=== PATIENT | female | born 1945 | race Caucasian/White ===

== ENCOUNTER 2016-09-22 20:21 | Inpatient (IN) | payer MEDICARE, OTHER ==
[~2016-09-22] VITALS: Ht 170.2 cm; Wt 85.3 kg
[~2016-09-22 20:21] MED LIST: ACETAMINOPHEN500 M1; ACIPHEX20 MG PO; BAYER CHEWABLE81 MG PO; BENICAR HCT 40-1 TA1 PO; BENICAR20 MG PO; CARAFATE1 G PO; CARDIZEM CD180 MG PO; CEFTIN250 MG PO; COUMADIN2.5 MG; COUMADIN2.5 MG PO; COUMADIN5 MG PO; FISH OIL 1,0001 CA1 PO; FOLIC ACID1 MG PO; FUROSEMIDE40 MG PO; GLUCOPHAGE500 MG PO; LANOXIN125 MCG PO; LASIX INJ40 MG/4 ML PO; LISINOPRIL5 MG PO; LOPRESSOR25 MG PO; LOPRESSOR50 MG PO; PERCOCET 5-3251 TAB PO; PROPAFENONE HC150 MG PO; PROPAFENONE PO; PROTONIX40 MG PO; RYTHMOL150 MG PO; Rythmol PO; TRICOR145 MG PO; TRILIPIX135 MG PO; VITAMIN B-121000 MC3 PO; VITAMIN B-6100 MG PO; VITAMIN D2000 UNIT PO; XANAX1 MG PO; ZOCOR40 MG PO
[2016-09-22 21:14] LABS: BASOPHILS 0.1 % (0.0-2.0); EOSINOPHILS 0.1 % (0-7); HEMATOCRIT 44.2 % (36.0-48.0); HEMOGLOBIN 13.8 g/dL (12-16); IMMATURE GRANULOCYTES 0.2 % (0-5); LYMPHOCYTES 18.5 % (15-50); MCH 25.1 pg (26.0-34.0); MCHC 31.2 g/dL (31.0-37.0); MCV 80.5 fL (80.0-100.0); MEAN PLATELET VOLUME 10.6 fL (7.4-10.4); MONOCYTES 7.3 % (2-11); NEUTROPHILS 73.8 % (40-80); PLATELET COUNT 358 10x3/uL (130-400); RBC 5.49 10x6/uL (4.00-5.40); RDW 22.1 % (11.5-14.5)
[2016-09-22 21:28] LABS: ALBUMIN 3.2 g/dL (3.4-5.0); ALKALINE PHOSPHATASE 45 U/L (46-116); ALT (SGPT) 20 U/L (10-68); BILIRUBIN - TOTAL 0.57 mg/dL (0.2-1.3); CALC OSMOLALITY 280 mosm/kg (275-300); CALCIUM 9.5 mg/dL (8.5-10.1); CARBON DIOXIDE 25.2 mmol/L (21.0-32.0); CHLORIDE - SERUM 100 mmol/L (98-107); CREATININE - SERUM 1.6 mg/dL (0.6-1.3); GLUCOSE 145 mg/dL (74-106); POTASSIUM - SERUM 3.7 mmol/L (3.5-5.1); SODIUM 137 mmol/L (136-145); UREA NITROGEN 24 mg/dL (7-18); eGFR NON AFRICAN AMERICAN 34 mL/min (90-120)
[2016-09-22 21:40] LABS: CHOL - HDL RATIO 4.5 ratio (2.3-4.1); CHOLESTEROL, TOTAL 195 mg/dL (0-200); CKMB 0.8 U/L (0.0-3.6); CREATINE KINASE 35 UL (21-215); HDL CHOLESTEROL 43 mg/dL (32-96); LDL CHOLESTEROL 112 mg/dL (0-100); LDL-HDL RATIO 2.6 ratio (1.5-3.5); MAGNESIUM - SERUM 1.9 mg/dL (1.8-2.4); TRIGLYCERIDE 203 mg/dL (30-200)
[2016-09-22 21:41] LABS: DIGOXIN 0.05 ng/mL (0.90-2.00); TROPONIN-I < 0.017 ng/mL (0.000-0.060)
--- NOTE | 2016-09-23 00:13 | NUR ---
RECEIVED TO 2123 FROM ER VIA WHEELCHAIR, AAOX3, SKIN WARM AND DRY, RESP UNLABORED, IV PATENT TO LEFT AC, FAMILY AT BEDSIDE, NO DISTRESS NOTED
[2016-09-23] MEDS ORDERED: COUMADIN1 MG PO (00:37)
[2016-09-23] MEDS ORDERED: ADVAIR 250/501 DISK INH (00:42)
[2016-09-23] MEDS ORDERED: SINGULAIR10 MG PO (00:43)
[2016-09-23] MEDS ORDERED: K-DUR20 MEQ PO (00:44)
[2016-09-23 00:52] VITALS: BP 158/90; BMI 29.5
[2016-09-23 06:33] VITALS: BP 131/63
--- NOTE | 2016-09-23 06:35 | NUR ---
RESTING QUIETLY IN BED, NO DISTRESS NOTED
--- NOTE | 2016-09-23 06:50 | NUR ---
RECEIVED REPOT FROM AXLE AND FRAME MECHANIC NURSE, AI KEITH. PT IN BED, DENIES ANY NEEDS AT THUIS TIME. CALL LIGHT IN REACH, NAD NOTED, WILL CONTINUE TO MONITOR.
[2016-09-23 07:52] VITALS: BP 123/74
--- NOTE | 2016-09-23 08:19 | NUR ---
CARDIZEM DRIP STARTED AT THIS TIME. PACEMAKER BEING CHECKED AT THIS TIME. PT UP TO SIDE OF BED, DENIES ANY NEEDS AT THIS TIME. CALL LIGHT IN REACH, FAMILY AT BEDSIDE, NAD NOTED, WILL CONTINUE TO MONITOR.
[2016-09-23 12:00] VITALS: BP 115/50
[2016-09-23 12:34] VITALS: Ht 170.2 cm; Wt 85.3 kg
--- NOTE | 2016-09-23 15:30 | NUR ---
PAGED DR. SALEH, WAITING ON HIM TO CALL BACK. 153- RECEIVED CALL BACK ROM DR. SALEH, INFOMRED HIM THAT PT IS ASKING FOR SOMETHING FOR PAIN AND THAT TYLENOL IS NOT DOING ANYTHING FOR HER, AND ALSO THAT PT WANTS A NASAL SPRAY THAT WILL DRY HER DRAINING UP. DR. SALEH STATED THAT SHE COULD HAVE NORCO 10/325MG Q4PRN FOR HEADACHE AND THAT ANY NASAL SPRAY WOULD BE FINE.
[2016-09-23 15:44] VITALS: BP 115/56
--- NOTE | 2016-09-23 15:50 | NUR ---
WENT TO ADMINISTERED NORCO FOR HEADACHE, PT STATED THAT SHE WANTED TO WAIT UNTIL TONIGHT TO GET THE PAIN PILL, BECAUSE IT WILL PUT HER TO SLEEP. PT DENIES ANY NEEDS AT THIS TIME. CALL LIGHT IN REACH, NAD NOTED, WILL CONTINUE TO MONITOR.
--- NOTE | 2016-09-23 19:03 | NUR ---
SITTING UP IN BED, AAOX3, SKIN WARM AND DRY, RESP UNLABORED, IV PATENT TO LEFT AC, SEVERAL FAMILY MEMBERS AT BEDSIDE, NO DISTRESS NOTED
[2016-09-23 20:33] VITALS: BP 168/76
[2016-09-24 00:32] VITALS: BP 136/81
[2016-09-24 04:42] VITALS: BP 122/81; BP 151/103
--- NOTE | 2016-09-24 05:39 | NUR ---
RESTING QUIETLY IN BED, NO DISTRESS NOTED
--- NOTE | 2016-09-24 06:20 | NUR ---
PT LAYING IN BED EYES OPEN NO DISTRESS OBSERVED CALL LIGHT IN REACH SRX2 WILL MONITOR
--- NOTE | 2016-09-24 06:21 | NUR ---
PT LAYING IN BED NO DISTRESS OBSERVED SECURITY INCIDENT RESPONSE SPECIALIST AT BEDSIDE OBTANING VITAL SIGNS BED LOW AND LOCKED CALL LIGHT IN REACH SRX2 WILL MONITOR
--- NOTE | 2016-09-24 06:50 | NUR ---
RECEIVED REPORT FROM CONTRACTS DIRECTOR NURSE, PT UP TO SIDE OF BED, DENIES ANY NEEDS AT THIS TIME. ASSESSMENT DONE AT THIS TIME. CALL LIGHT IN REACH, NAD NOTED, WILL CONTINUE TO MONITOR.
[2016-09-24 08:00] VITALS: BP 134/70
--- NOTE | 2016-09-24 08:30 | NUR ---
ADMINISTERED MORNING MEDICATIONS, PT UP TO CHAIR, EATING BREAKFAST AT THIS TIME. STATES THAT DR. ANDRADE TOLD HER THAT HE WOULD D/C THE CARDIZEM DRIP AND ORDER AN ECHO. INFORMED PT THAT I DID NOT SEE ANY OTHER FOR THOSE TWO THING. PT DENIES ANY NEEDS AT THIS TIME.Fuad MELO IN REACH, NAD NOTED, WILL CONTINUE TO MONITOR.
--- NOTE | 2016-09-24 10:37 | NUR ---
LEFT AC IV, INFILTRATED, D/C IV, TIP INTACT. WILL START A NEW IV, BUT PT WANTS TO GET IN THE SHOWER FIRST. PT WILL NOTIFY NURSE WHEN SHE IS DONE WITH SHOWER.
--- NOTE | 2016-09-24 11:25 | NUR ---
PAGED DR. ANDRADE WAITING ON HIM TO CALL BACK. 1130- RECEIVED CALL BACK FROM DR. ANDRADE, INFOMRED HIM THAT PT IS SAYING THAT HE TOLD TOLD HER THAT HE WAS GOING TO TAKE HER OFF THE CARDIZEM DRIP AND START HER ON NEW MEDICATIONS AND ALSO ORDER AN ECHO ON HER. PT WANTS TO KNOW IF SHE CAN COME OFF THE CARDIZEM DRIP. DR. ANDRADE STATED THAT HE TOLD PT THAT HE WOULD ORDER AN ECHO AND COME BY AFTER LUNCH AND SEE HOW SHE IS DOING TO SEE IF HE WANTS TO D/C CARDIZEM DRIP. WILL LET PT KNOW ABOUT INFO GIVEN BY DR. ANDRADE.
--- NOTE | 2016-09-24 11:35 | NUR ---
IV access-#22 introcan in left hand x 1 attempt for saline flush. Gloria Alejo RN
[2016-09-24 12:00] VITALS: BP 115/62
[2016-09-24 16:00] VITALS: BP 129/62
--- NOTE | 2016-09-24 17:16 | NUR ---
PT UP TO SIDE OF BED, EATING DINNER. DENIES ANY NEEDS AT THIS TIME. CALL LIGHT IN REACH, NAD NOTED, WILL CONTINUE TO MONITOR.
--- NOTE | 2016-09-24 19:03 | NUR ---
SITTING UP IN BED, AAOX3, SKIN WARM AND DRY, RESP UNLABORED, IV PATENT TO LEFT HAND, NO DISTRESS NOTED
[2016-09-24 20:00] VITALS: BP 129/70
[2016-09-25] VITALS: BP 105/49
--- NOTE | 2016-09-25 03:56 | NUR ---
COMMERCIAL LOAN UNDERWRITER AT BEDSIDE TO OBTAIN VITALS, CALL LIGHT IN REACH. WILL CONTINUE WITH PLAN OF CARE.
[2016-09-25 04:00] VITALS: BP 119/65
--- NOTE | 2016-09-25 06:22 | NUR ---
RESTING QUIETLY IN BED, NO DISTRESS NOTED
--- NOTE | 2016-09-25 07:48 | NUR ---
PT SITTING UP IN BED WITH SON AT BEDSIDE. DENIES NEEDS WILL CONTINUE TO MONITOR.
[2016-09-25 08:14] VITALS: BP 132/81
[2016-09-25 11:24] LABS: INR 1.12 (0.85-1.17); PROTIME 14.3 SECONDS (11.6-15.0)
[2016-09-25 12:40] VITALS: BP 151/70
--- NOTE | 2016-09-25 14:06 | NUR ---
PT HAS BEEN SITTING UP TO THE CHAIR MOST OF THE DAY DENIES NEEDS AT THIS TIME WILL CONTINUE TO MONITOR.
--- NOTE | 2016-09-25 14:38 | NUR ---
PT PT AND INR ARE WITHIN NORMAL LIMITS OK TO GIVE COUMADIN.
[2016-09-25 16:57] VITALS: BP 129/86
--- NOTE | 2016-09-25 17:00 | NUR ---
DC CARDIZEM DRIP 2 HOURS AFTER PO DOSE OF CARDIZEM PER DR LUPE ROYAL.
--- NOTE | 2016-09-25 17:29 | NUR ---
PT SITTING UP IN BED EATING DINNER DENIES NEEDS AT THIS TIME.
[2016-09-25 20:00] VITALS: BP 157/84
--- NOTE | 2016-09-25 20:00 | NUR ---
PT RESTING IN BED. ALERT/ORIENTED. 102 UCAF. NO SOB, DENIES NEED FOR O2. PT TEACHING ON CARDIZEM/ USE OF IV CARDIZEM TO BUILD UP IN SYSTEM, THEN PO TO CONTINUE DOSE. SEE ASSESSMENT.
[2016-09-26 02:28] VITALS: BP 128/66
--- NOTE | 2016-09-26 06:00 | NUR ---
PT SAW HER PCP IN HALLWAY AND REQUESTED HE COME SEE HER. SHE SPOKE WITH HIM ABOUT HER COUGH/THICK GREEN PHLEGM AND CONGESTION. ORDERS PER PCP, DR ANDRADE TO BE UPDATED.
[2016-09-26 08:00] VITALS: BP 147/88
--- NOTE | 2016-09-26 08:07 | NUR ---
PT SITTING UP TO CHAIR DENIES NEEDS AT THIS TIME WILL CONTINUE TO MONITOR.
[2016-09-26 08:34] LABS: ALBUMIN 3.3 g/dL (3.4-5.0); ANION GAP 14.3 mmol/L (8-16); BILIRUBIN - TOTAL 0.61 mg/dL (0.2-1.3); CALCIUM 9.5 mg/dL (8.5-10.1); CARBON DIOXIDE 26.7 mmol/L (21.0-32.0); CREATININE - SERUM 1.1 mg/dL (0.6-1.3); PROTEIN - SERUM 6.6 g/dL (6.4-8.2)
[2016-09-26 08:41] LABS: APTT 26.3 SECONDS (22.8-39.4); INR 1.14 (0.85-1.17); PROTIME 14.5 SECONDS (11.6-15.0)
[2016-09-26 08:52] LABS: BASOPHILS 0.1 % (0.0-2.0); EOSINOPHILS 0.5 % (0-7); HEMATOCRIT 41.5 % (36.0-48.0); IMMATURE GRANULOCYTES 0.1 % (0-5); LYMPHOCYTES 19.5 % (15-50); MCH 25.6 pg (26.0-34.0); MCHC 31.3 g/dL (31.0-37.0); MCV 81.9 fL (80.0-100.0); MEAN PLATELET VOLUME 10.2 fL (7.4-10.4); MONOCYTES 10.3 % (2-11); NEUTROPHILS 69.5 % (40-80); RBC 5.07 10x6/uL (4.00-5.40); RDW 22.9 % (11.5-14.5); WBC 7.6 10x3/uL (4.8-10.8)
[2016-09-26 09:03] LABS: PLATELET COUNT 275 10x3/uL (130-400)
--- NOTE | 2016-09-26 10:19 | NUR ---
Nutrition Follow Up: Chart reviewed. Diet: ADA AHA PO Intake: 83% (9 meal avg) I=O No new wt to assess No BM since admit Meds: Coumadin, Lasix, Metformin Labs noted Pt with good po intake at this time. Rec continue current diet. RD following.
[2016-09-26 12:00] VITALS: BP 109/69
[2016-09-26 16:00] VITALS: BP 108/54
--- NOTE | 2016-09-26 18:45 | NUR ---
PT SITTING UP IN CHAIR DENIES NEEDS
[2016-09-26 20:00] VITALS: BP 134/72
--- NOTE | 2016-09-26 20:00 | NUR ---
PT ALERT/ORIENTED AND SITTING IN BEDSIDE CHAIR. REPORTS THAT SHE HAS HAD LARGE RESULTS FROM THE PRUNE JUICE/[place] PE[place] DRINK THAT SHE TOOK THIS AM. PT WITH PRODUCTIVE COUGH/CONGESTION. UCAF PER TELEMETRY, RATE 110-120'S. CPOC.
--- NOTE | 2016-09-26 23:00 | NUR ---
HS MEDS GIVEN. PT NOW READING NOVEL. DENIES PAIN OR DISCOMFORT. REQUESTED COUGH MEDICINE GIVEN. CPOC.
[2016-09-27 04:00] VITALS: BP 99/57
[2016-09-27 06:04] LABS: INR 1.15 (0.85-1.17); PROTIME 14.6 SECONDS (11.6-15.0)
--- NOTE | 2016-09-27 07:31 | NUR ---
PT SITTING UP IN CHAIR REQUESTING PAIN MEDS WILL GET.
[2016-09-27 08:03] VITALS: BP 121/52
[2016-09-27 12:11] VITALS: BP 116/78
[2016-09-27] MEDS ORDERED: MULTAQ400 MG PO ×2 (12:18→12:20)
[2016-09-27] MEDS ORDERED: CARDIZEM 90 MG90 MG PO (12:20)
--- NOTE | 2016-09-27 13:01 | NUR ---
WENT OVER DC PAPERWORK WITH PT PT VERBALIZED UNDERSTANDING. DC PIV WITH CATHETER TIP INTACT. DC TELE. PT FAMILY PICKED PT UP WHEELED PT DOWNSTAIRS TO FRONT ENTRANCE.
--- NOTE | 2016-10-03 11:11 | DS ---
PATIENT:KAVEH OHARA :[birth year] MEDICAL RECORD: [id number] DISCHARGE SUMMARY ADMISSION DATE: 09/23/16 DISCHARGE DATE: 09/27/16 DISCHARGE DIAGNOSES: 1. Atrial fibrillation. 2. Hypertension. HOSPITAL COURSE: Mrs. Ohraa presents with dizziness and problems with atrial fibrillation, found to have rapid ventricular response. She had medication change. She was discharged home with the addition of Cardizem 90 mg t.i.d. and Multaq 400 mg b.i.d. She will follow up with Dr. North in 1 month. TRANSINT:[id number] Voice Confirmation ID: [id number] DOCUMENT ID: [id number] RIVKA JACINTO MD at 1111 CC: [id number] DICTATION DATE: 09/27/16 1046 SOCIAL WORK INSTRUCTOR: 09/27/16 1157 DIS IN 09/27/[address] [address]
--- NOTE | 2016-10-13 15:45 | EC ---
PATIENT:KAVEH OHARA DATE OF SERVICE: 09/23/16 SEX: F MEDICAL RECORD: [id number] DATE OF : [birth year] [facility] AGE OF PATIENT: 71 ADMISSION DATE: 09/23/16 REFERRING PHYSICIAN: INTERPRETING PHYSICIAN: GUTIERREZ NORTH M.D. ECHOCARDIOGRAM REPORT ECHO CHARGES 5 ECHO LIMITED CLINICAL DIAGNOSIS: A-FIB ECHOCARDIOGRAPHIC MEASUREMENTS (adult normal given) AC root (d.<3.7cm) 0 LV Septum d (<1.2 cm> 0 Valve Excursion 0 LV Septum (systole) 0 Left Atria (s.<4.0cm> 0 LVPW d(<1.2cm) 0 RV (d.<2.3cm) 0 LVPW (sytole) 0 LV diastole(<5.6CM) 0 MV E-F(>70mm/sec) 0 LV systole 0 LVOT Diameter 0 MV exc.(>10mm) 0 Est.ejection fraction (50-75%) Pericardial Effusion N DOPPLER: LVIT 0 A 0 E 0 LA 0 RVSP 0 LVOT 0 AOP1/2T 0 Asc. Ao 0 RVOT 0 RA 0 PA 0 AV Gradient Peak 0 AV Mean 0 AV Area 0 MV Gradient Peak 0 MV Mean 0 MV Area 0 COMMENTS: LIMITED STUDY (2-D ONLY) COMPLETE ECHO DONE ON 07/30/16 Floor Grinder: Rick VELIZ Neuroradiologist:Alyssa North TAPE# PACS DATE OF SERVICE: 09/24/2016 REFERRING PHYSICIAN: Panchito North MD. INDICATION: Atrial fibrillation. DESCRIPTION: This is a limited study____ ejection fraction has changed in the past 2 months. DESCRIPTION: Left ventricle appears upper limits of normal size. There is ECHOCARDIOGRAM REPORT [id number] KAVEH OHARA global hypokinesis noted. Estimated ejection is in the order of 30%. Mitral valve appears structurally normal. Left atrium is mildly dilated. The aortic valve is not visualized. Right ventricle appears normal size and function. There is no pericardial effusion seen. IMPRESSION:. Moderate left ventricular dysfunction with ejection fraction of 30%. TRANSINT:[id number] Voice Confirmation ID: [id number] DOCUMENT ID: [id number] GUTIERREZ NORTH M.D. at 1545 CC: [id number] DICTATION DATE: 09/24/16 1557 BICYCLE REPAIRER: 09/25/16 0006 DIS IN 09/27/16 [id number] [place] [address]
== END 2016-09-27 13:05 | disposition home or self-care (01) | DRG 308 ==
LOC: D.ER 20:21 → OBSVTIME 22:13 → D.M2 22:13
PROVIDERS: Emergency Medicine; ADMIT Internal Medicine Cardiovascular Disease
DX: I48.0 Paroxysmal atrial fibrillation (principal); I50.21 Acute systolic (congestive) heart failure; Z95.0 Presence of cardiac pacemaker; I42.9 Cardiomyopathy, unspecified; E11.9 Type 2 diabetes mellitus without complications; I10 Essential (primary) hypertension; E78.5 Hyperlipidemia, unspecified; I95.1 Orthostatic hypotension

== ENCOUNTER 2016-09-30 16:12 | Inpatient (IN) | payer MEDICARE, OTHER ==
[~2016-09-30] VITALS: Ht 170.2 cm; Wt 85.9 kg
[~2016-09-30 16:12] MED LIST changes: +ADVAIR 250/501 DISK INH; +CARDIZEM 90 MG90 MG PO; +COUMADIN1 MG PO; +K-DUR20 MEQ PO; +MULTAQ400 MG PO; +SINGULAIR10 MG PO
[2016-09-30 16:59] LABS: BASOPHILS 0.4 % (0.0-2.0); EOSINOPHILS 0.8 % (0-7); HEMATOCRIT 45.1 % (36.0-48.0); HEMOGLOBIN 14.2 g/dL (12-16); IMMATURE GRANULOCYTES 0.2 % (0-5); LYMPHOCYTES 13.5 % (15-50); MCH 25.8 pg (26.0-34.0); MCHC 31.5 g/dL (31.0-37.0); MCV 81.9 fL (80.0-100.0); MEAN PLATELET VOLUME 9.6 fL (7.4-10.4); MONOCYTES 10.1 % (2-11); PLATELET COUNT 271 10x3/uL (130-400); RBC 5.51 10x6/uL (4.00-5.40); RDW 22.1 % (11.5-14.5); WBC 8.6 10x3/uL (4.8-10.8)
[2016-09-30 17:21] LABS: INR 1.66 (0.85-1.17); PROTIME 19.5 SECONDS (11.6-15.0)
[2016-09-30 17:37] LABS: ALBUMIN 3.4 g/dL (3.4-5.0); ANION GAP 17.8 mmol/L (8-16); BILIRUBIN - TOTAL 0.57 mg/dL (0.2-1.3); CALCIUM 9.4 mg/dL (8.5-10.1); CARBON DIOXIDE 23.2 mmol/L (21.0-32.0); CREATININE - SERUM 1.5 mg/dL (0.6-1.3); PROTEIN - SERUM 6.8 g/dL (6.4-8.2)
[2016-09-30 17:47] LABS: THYROID STIMULATING HORMONE 1.23 uIU/mL (0.36-3.74)
--- NOTE | 2016-09-30 17:57 | NUR ---
IV access-#22 gauge started in left forearm. Gloria Alejo RN
--- NOTE | 2016-09-30 19:03 | NUR ---
SITTING UP IN BED, AAOX3, SKIN WARM AND DRY, RESP UNLABORED, IV PATENT TO RIGHT FOREARM, MOOD PLEASANT, NO DISTRESS NOTED
[2016-09-30 19:32] VITALS: BP 160/89; Ht 170.2 cm; Wt 85.9 kg
[2016-09-30 19:46] VITALS: BP 155/65
--- NOTE | 2016-10-01 00:21 | NUR ---
PT LAYING IN BED EYES CLOSED AND PT APPERS TO BE SLEEPING NO DISTRESS OBSERVED AT THIS TIME CALL LIGHT IN REACH SRX2 BED LOW AND LOCKED WILL MONITOR
[2016-10-01 01:10] VITALS: BP 147/67
[2016-10-01 04:00] VITALS: BP 143/84
[2016-10-01 05:03] LABS: BASOPHILS 0.3 % (0.0-2.0); EOSINOPHILS 0.7 % (0-7); HEMATOCRIT 42.5 % (36.0-48.0); HEMOGLOBIN 13.3 g/dL (12-16); IMMATURE GRANULOCYTES 0.5 % (0-5); INR 1.16 (0.85-1.17); LYMPHOCYTES 19.5 % (15-50); MCH 25.2 pg (26.0-34.0); MCHC 31.3 g/dL (31.0-37.0); MCV 80.6 fL (80.0-100.0); MEAN PLATELET VOLUME 10.8 fL (7.4-10.4); MONOCYTES 10.8 % (2-11); NEUTROPHILS 68.2 % (40-80); PLATELET COUNT 237 10x3/uL (130-400); PROTIME 14.7 SECONDS (11.6-15.0); RBC 5.27 10x6/uL (4.00-5.40); RDW 22.2 % (11.5-14.5)
[2016-10-01 05:05] LABS: WBC 5.9 10x3/uL (4.8-10.8)
[2016-10-01 05:16] LABS: ANION GAP 17.7 mmol/L (8-16); CARBON DIOXIDE 25.7 mmol/L (21.0-32.0); CREATININE - SERUM 1.3 mg/dL (0.6-1.3); POTASSIUM - SERUM 3.4 mmol/L (3.5-5.1)
[2016-10-01 07:37] VITALS: BP 128/68
--- NOTE | 2016-10-01 07:59 | NUR ---
ASSESSMENT DONE. DENIES NEEDS
--- NOTE | 2016-10-01 09:22 | NUR ---
RESTS WITH EYES CLOSED. IV PATENT. CALL LIGHT IN REACH. WILL CONT. PLAN OF CARE.
[2016-10-01 11:27] VITALS: BP 127/68
[2016-10-01 15:35] VITALS: BP 150/81
--- NOTE | 2016-10-01 18:48 | NUR ---
WITHOUT CHANGES OR DISTRESS NOTED AT THIS TIME
--- NOTE | 2016-10-01 19:03 | NUR ---
SITTING UP IN BED, AAOX3, SKIN WARM AND DRY, RESP UNLABORED, IV PATENT TO RIGHT FOREARM, MOOD PLEASANT, DENIES NEEDS
--- NOTE | 2016-10-01 20:30 | NUR ---
IV INFILTRATED, RESITED TO LEFT FOREARM USING 22G X 1 ATTEMPT, THERESE WELL
[2016-10-01 21:18] VITALS: BP 150/66
[2016-10-02 01:32] VITALS: BP 120/79
--- NOTE | 2016-10-02 02:23 | NUR ---
LYING IN BED WITH CALL LIGHT IN REACH. WILL CONTINUE WITH PLAN OF CARE.
[2016-10-02 04:57] VITALS: BP 116/61
[2016-10-02 06:05] LABS: BASOPHILS 0.2 % (0.0-2.0); EOSINOPHILS 0 % (0-7); HEMATOCRIT 41.2 % (36.0-48.0); IMMATURE GRANULOCYTES 0.2 % (0-5); LYMPHOCYTES 12.4 % (15-50); MCH 25.2 pg (26.0-34.0); MCHC 31.6 g/dL (31.0-37.0); MEAN PLATELET VOLUME 9.6 fL (7.4-10.4); MONOCYTES 3.6 % (2-11); NEUTROPHILS 83.6 % (40-80); PLATELET COUNT 264 10x3/uL (130-400); RBC 5.15 10x6/uL (4.00-5.40); RDW 21.6 % (11.5-14.5); WBC 6.1 10x3/uL (4.8-10.8)
[2016-10-02 06:37] LABS: ANION GAP 15.1 mmol/L (8-16); CALCIUM 9.1 mg/dL (8.5-10.1); CARBON DIOXIDE 26.6 mmol/L (21.0-32.0); CREATININE - SERUM 1.2 mg/dL (0.6-1.3); POTASSIUM - SERUM 3.7 mmol/L (3.5-5.1)
--- NOTE | 2016-10-02 07:58 | NUR ---
ASSESSMENT DONE. DENIES NEEDS.
[2016-10-02 08:38] VITALS: BP 147/70
--- NOTE | 2016-10-02 09:04 | NUR ---
IV NURSE AT BS. WILL CONT. PLAN OF CARE.
[2016-10-02 12:25] VITALS: BP 113/73
[2016-10-02 16:28] VITALS: BP 122/68
--- NOTE | 2016-10-02 17:55 | NUR ---
WITHOUT CHANGES OR DISTRESS NOTED AT THIS TIME. DENIES NEEDS.
[2016-10-03] VITALS: BP 105/67
[2016-10-03 04:00] VITALS: BP 104/74
--- NOTE | 2016-10-03 05:01 | NUR ---
CALL LIGHT IN REACH, WILL CONTINUE WITH PLAN OF CARE.
[2016-10-03 05:36] LABS: BASOPHILS 0.1 % (0.0-2.0); EOSINOPHILS 0 % (0-7); HEMATOCRIT 41.3 % (36.0-48.0); IMMATURE GRANULOCYTES 0.4 % (0-5); LYMPHOCYTES 8.4 % (15-50); MCH 25.3 pg (26.0-34.0); MCHC 31.5 g/dL (31.0-37.0); MCV 80.5 fL (80.0-100.0); MEAN PLATELET VOLUME 10.3 fL (7.4-10.4); MONOCYTES 3.3 % (2-11); NEUTROPHILS 87.8 % (40-80); RBC 5.13 10x6/uL (4.00-5.40); RDW 21.3 % (11.5-14.5)
[2016-10-03 05:46] LABS: INR 1.89 (0.85-1.17); PROTIME 21.7 SECONDS (11.6-15.0)
[2016-10-03 05:51] LABS: PLATELET COUNT 341 10x3/uL (130-400); WBC 13.2 10x3/uL (4.8-10.8)
[2016-10-03 05:52] LABS: ANION GAP 19.7 mmol/L (8-16); CALCIUM 10.3 mg/dL (8.5-10.1); CARBON DIOXIDE 24.5 mmol/L (21.0-32.0); CREATININE - SERUM 1.4 mg/dL (0.6-1.3); POTASSIUM - SERUM 4.2 mmol/L (3.5-5.1)
--- NOTE | 2016-10-03 07:15 | NUR ---
PT SITTING UP IN BED DENIES NEEDS WILL CONTINUE TO MONITOR.
[2016-10-03 08:00] VITALS: BP 124/68
[2016-10-03 12:00] VITALS: BP 119/62
--- NOTE | 2016-10-03 12:25 | NUR ---
Nutrition follow-up: Diet: Consistent CHO PO Intake 50-75% of meals Labs reviewed; FSBS under fair to good control at this time Wt: 186# -> stable Last BM charted 09/27/16 Pt may need laxative due to no BM x several days. PO intake is fair at most meals; will continue to provide food choices with selective menus and honor food preferences within diet restrictions. RDN following.
--- NOTE | 2016-10-03 15:13 | NUR ---
Patient Name: KAVEH OHARA Admission Status: Urgent Accout number: [id number] Admission Date: 09-30-2016 : 1945 Admission Diagnosis: Attending: BRUNILDA Current LOS: 3 Anticipated DC Date: Planned Disposition: Home Primary Insurance: MEDICARE A & B Discharge Planning Comments: * Is the patient Alert and Oriented? Yes 0 * How many steps to enter\exit or inside your home? NONE 0 * PCP DR. REYNOLDS 0 * Pharmacy [facility] 0 * Preadmission Environment Home Alone 0 * ADLs Independent 0 * Equipment None 0 * Other Equipment NO MEDICAL EQUIPMENT PROVIDER PREFERENCE 0 * List name and contact numbers for known caregivers / representatives who currently or will assist patient after discharge: -RAMYA VELOZ, SISTER, / [phone] 0 * Community resources currently utilized None 0 * Please name any agencies selected above. NONE 0 * Additional services required to return to the preadmission environment? No 0 * Can the patient safely return to the preadmission environment? Yes 0 * Has this patient been hospitalized within the prior 30 days at any hospital? Yes 0 CM MET WITH PT IN ROOM TO DISCUSS DISCHARGE PLANNING AND NEEDS. PT REPORTS LIVING AT HOME INDEPENDENTLY AND ALONE. PT HAS NO MEDICAL EQUIPMENT AND NO OUTSIDE SERVICES ASSISTING IN THE HOME. CM DISCUSSED AVAILABILITY OF HOME HEALTH, REHAB SERVICES AND MEDICAL EQUIPMENT. PT DENIES DISCHARGE NEEDS, REPORTS HER SISTER WILL PICK HER UP FOR DISCHARGE HOME. CM AGAIN OFFERED HOME HEALTH, PT DECLINED. CM PROVIDED CM CONTACT INFORMATION TO PT. PT PLANS TO DISCHARGE HOME WITH NO ANTICIPATED NEEDS. CM TO FOLLOW AND ASSIST NEEDED. Commercial Sewing Instructor: Jony Jackson
[2016-10-03 16:02] VITALS: BP 130/62
--- NOTE | 2016-10-03 18:43 | NUR ---
PT SITTING UP TO CHAIR DENIES NEEDS
[2016-10-03 20:00] VITALS: BP 142/68
[2016-10-04] VITALS: BP 125/47
--- NOTE | 2016-10-04 02:05 | NUR ---
PT RESTING WELL WITHOUT C/O OR DISTRESS NOTED. NO NEEDS VOICED. CALL LIGHT WITHIN REACH. WILL CONT TO MONITOR.
[2016-10-04 06:20] LABS: BASOPHILS 0.1 % (0.0-2.0); EOSINOPHILS 0 % (0-7); HEMATOCRIT 36.9 % (36.0-48.0); HEMOGLOBIN 11.5 g/dL (12-16); IMMATURE GRANULOCYTES 0.6 % (0-5); LYMPHOCYTES 7.1 % (15-50); MCH 25.2 pg (26.0-34.0); MCHC 31.2 g/dL (31.0-37.0); MCV 80.7 fL (80.0-100.0); MEAN PLATELET VOLUME 9.8 fL (7.4-10.4); MONOCYTES 3.6 % (2-11); NEUTROPHILS 88.6 % (40-80); PLATELET COUNT 286 10x3/uL (130-400); RBC 4.57 10x6/uL (4.00-5.40); RDW 21.4 % (11.5-14.5); WBC 11.8 10x3/uL (4.8-10.8)
[2016-10-04 06:38] LABS: INR 2.78 (0.85-1.17); PROTIME 29.6 SECONDS (11.6-15.0)
[2016-10-04 06:41] LABS: ANION GAP 14.7 mmol/L (8-16); CALCIUM 9.1 mg/dL (8.5-10.1); CREATININE - SERUM 1.5 mg/dL (0.6-1.3); POTASSIUM - SERUM 3.7 mmol/L (3.5-5.1)
[2016-10-04 08:40] VITALS: BP 152/72
[2016-10-04 12:03] VITALS: BP 99/69
--- NOTE | 2016-10-04 14:45 | NUR ---
UP IN BEDSIDE CHAIR. DENIES ANY NEEDS. CALL LIGHT IN REACH WITH SR UP. TELEMERTY SHOWS CAF AT 89. WILL MONITOR
[2016-10-04 14:47] VITALS: BP 92/62
--- NOTE | 2016-10-04 15:01 | NUR ---
PT SITTING UP IN CHAIR DENIES NEEDS WILL CONTINUE TO MONITOR
--- NOTE | 2016-10-04 15:45 | NUR ---
UP IN BEDSIDE CHAIR. DENIES ANY NEEDS. CALL LIGHT IN REACH. WILL MONITOR
--- NOTE | 2016-10-04 19:30 | NUR ---
ASSESSMENT COMPLETE, A&O. RESPERATIONS EVEN ON ROOM AIR. MIDLINE IV TO RIGHT ARM WITH NS INFUSING AT 15 AND CARDIZEM DRIP AT 10. PT DENIES PAIN OR NEEDS, CL IN REACH, WILL CONT TO MONITOR.
[2016-10-04 20:10] VITALS: BP 114/65
[2016-10-05] VITALS (7 sets, daily range): BP systolic 112–136; BP diastolic 61–81
[2016-10-05 06:11] LABS: BASOPHILS 0.1 % (0.0-2.0); EOSINOPHILS 0 % (0-7); HEMATOCRIT 36.8 % (36.0-48.0); HEMOGLOBIN 11.3 g/dL (12-16); IMMATURE GRANULOCYTES 0.6 % (0-5); LYMPHOCYTES 7.8 % (15-50); MCH 25.1 pg (26.0-34.0); MCHC 30.7 g/dL (31.0-37.0); MCV 81.8 fL (80.0-100.0); MEAN PLATELET VOLUME 9.9 fL (7.4-10.4); MONOCYTES 2.7 % (2-11); NEUTROPHILS 88.8 % (40-80); PLATELET COUNT 292 10x3/uL (130-400); RDW 21.4 % (11.5-14.5); WBC 10.6 10x3/uL (4.8-10.8)
[2016-10-05 06:34] LABS: INR 3.52 (0.85-1.17); PROTIME 35.7 SECONDS (11.6-15.0)
[2016-10-05 06:41] LABS: ANION GAP 14.2 mmol/L (8-16); CALCIUM 9.2 mg/dL (8.5-10.1); CARBON DIOXIDE 26.9 mmol/L (21.0-32.0); CREATININE - SERUM 1.4 mg/dL (0.6-1.3); POTASSIUM - SERUM 4.1 mmol/L (3.5-5.1)
--- NOTE | 2016-10-05 09:43 | NUR ---
TELEMETRY SR. HR 89. IV PATENT. SWANSON INTACT. FAMILY AT BS. WILL CONT. PLAN OF CARE.
--- NOTE | 2016-10-05 09:51 | NUR ---
TELEMETRY CAF. IV PATENT. CALL LIGHT IN REACH. WILL CONT. PLAN OF CARE.
--- NOTE | 2016-10-05 19:26 | NUR ---
RESUMED CARE OF PT, LYING IN BED RESPIRATIONS EVEN AND UNLABORED ON ROOM AIR. 68 CAF WITH PACED BEATS ON TELEMETRY. RIGHT UPPERARM INFUSING CARDIZEM @ 10. NO NEEDS VOICED AT THIS TIME. WILL CONTINUE TO MONITOR. SEE NURSE ASSESSMENT. CALL LIGHT IN REACH.
[2016-10-06] VITALS: BP 95/48
--- NOTE | 2016-10-06 02:36 | NUR ---
LYING IN BED WITH EYES CLOSED, CALL LIGHT IN REACH. WILL CONTINUE WITH PLAN OF CARE.
[2016-10-06 04:00] VITALS: BP 105/64
[2016-10-06 05:01] LABS: BASOPHILS 0 % (0.0-2.0); EOSINOPHILS 0.1 % (0-7); HEMATOCRIT 36.1 % (36.0-48.0); HEMOGLOBIN 11.2 g/dL (12-16); IMMATURE GRANULOCYTES 1.3 % (0-5); LYMPHOCYTES 10.8 % (15-50); MCH 24.8 pg (26.0-34.0); MEAN PLATELET VOLUME 9.7 fL (7.4-10.4); NEUTROPHILS 83.8 % (40-80); PLATELET COUNT 286 10x3/uL (130-400); RBC 4.51 10x6/uL (4.00-5.40); WBC 9.1 10x3/uL (4.8-10.8)
[2016-10-06 05:12] LABS: PROTIME 41.9 SECONDS (11.6-15.0)
[2016-10-06 05:13] LABS: INR 4.3 (0.85-1.17)
[2016-10-06 05:24] LABS: ANION GAP 14.4 mmol/L (8-16); CALCIUM 8.9 mg/dL (8.5-10.1); CARBON DIOXIDE 26.5 mmol/L (21.0-32.0); CREATININE - SERUM 1.3 mg/dL (0.6-1.3); POTASSIUM - SERUM 3.9 mmol/L (3.5-5.1)
--- NOTE | 2016-10-06 07:05 | NUR ---
NO CHANGES FROM PREVIOUS ASSESSMENT, CALL LIGHT IN REACH.
[2016-10-06 08:00] VITALS: BP 108/69
[2016-10-06 09:05] VITALS: BP 120/64
[2016-10-06 11:59] VITALS: BP 122/74
--- NOTE | 2016-10-06 13:22 | NUR ---
PRE-OPS GIVEN. TO CONSTRUCTION TRADES CONTRACTOR BY BED.
[2016-10-06 15:46] VITALS: BP 110/72
--- NOTE | 2016-10-06 19:03 | NUR ---
SITTING UP IN BED, AAOX3, SKIN WARM AND DRY, RESP UNLABORED, IV PATENT TO RIGHT UPPER ARM MIDLINE, MOOD PLEASANT, DENIES NEEDS
[2016-10-07] VITALS: BP 115/71
--- NOTE | 2016-10-07 02:13 | NUR ---
PT LAYING IN BED NO DISTRESS OBSERVED CALL LIGHT IN REACH SRX2 BED LOW AND LOCKED PT SHOWING 73 SR WITH PVC RESPERATIONS EVEN AND UNLABORED WILL MONITOR
[2016-10-07 04:00] VITALS: BP 125/67
--- NOTE | 2016-10-07 05:40 | NUR ---
RESTING QUIETLY IN BED, NO DISTRESS NOTED
[2016-10-07 05:59] LABS: INR 3.68 (0.85-1.17)
[2016-10-07 08:00] VITALS: BP 119/74
--- NOTE | 2016-10-07 09:37 | NUR ---
TELEMETRY CAF. UP IN CHAIR WITH CALL IGHT IN REACH. WILL CONT. PLAN OF CARE.
[2016-10-07 12:00] VITALS: BP 111/66
[2016-10-07 16:00] VITALS: BP 122/59
[2016-10-07 19:00] VITALS: BP 102/64
--- NOTE | 2016-10-07 19:03 | NUR ---
SITTING UP IN CHAIR AT BEDSIDE, AAOX3, SKIN WARM AND DRY, RESP UNLABORED, IV PATENT RIGHT UPPER ARM MIDLINE CATH, MOOD PLEASANT, NO DISTRESS NOTED
[2016-10-08] VITALS: BP 113/73
[2016-10-08 04:00] VITALS: BP 115/67
[2016-10-08 04:58] LABS: BASOPHILS 0.1 % (0.0-2.0); EOSINOPHILS 0 % (0-7); HEMATOCRIT 39.3 % (36.0-48.0); HEMOGLOBIN 12.2 g/dL (12-16); IMMATURE GRANULOCYTES 1.6 % (0-5); LYMPHOCYTES 19.3 % (15-50); MCH 25.1 pg (26.0-34.0); MCV 80.7 fL (80.0-100.0); MEAN PLATELET VOLUME 9.6 fL (7.4-10.4); MONOCYTES 6.5 % (2-11); NEUTROPHILS 72.5 % (40-80); PLATELET COUNT 320 10x3/uL (130-400); RBC 4.87 10x6/uL (4.00-5.40); WBC 9.1 10x3/uL (4.8-10.8)
[2016-10-08 05:10] LABS: CALCIUM 7.7 mg/dL (8.5-10.1); CREATININE - SERUM 1.1 mg/dL (0.6-1.3)
--- NOTE | 2016-10-08 06:07 | NUR ---
RESTING QUIETLY IN BED, NO DISTRESS NOTED
[2016-10-08 08:24] VITALS: BP 125/82
[2016-10-08 09:27] LABS: APPEARANCE CLEAR (CLEAR); BILIRUBIN NEGATIVE (NEGATIVE); COLOR YELLOW (YELLOW); GLUCOSE NEGATIVE (NEGATIVE); KETONE NEGATIVE (NEGATIVE); LEUKOCYTE ESTERASE 1+ (NEGATIVE); NITRITE NEGATIVE (NEGATIVE); PROTEIN NEGATIVE (NEGATIVE); SPECIFIC GRAVITY 1.015 (1.005-1.020); UROBILINOGEN NORMAL (NORMAL)
[2016-10-08 09:28] LABS: BACTERIA FEW /hpf (NONE SEEN); EPITHELIAL CELLS 0-5 /hpf (0-5); MUCUS <1+ /lpf (NONE SEEN); RED CELLS - URINE NONE SEEN /hpf (0-5); WHITE CELLS - URINE 0-5 /hpf (0-5)
--- NOTE | 2016-10-08 09:41 | NUR ---
UP IN CHAIR WITH CALL LIGHT IN REACH. TELEMETRY CAF. WILL CONT. PLAN OF CARE.
--- NOTE | 2016-10-08 11:17 | NUR ---
AMBULATES HALLWAY WITH PT ASSIST. PT STES SHE HAS SOME FOOT DROP.
--- NOTE | 2016-10-08 11:55 | NUR ---
Patient Name: KAVEH OHARA Encounter No: [id number] : 1945 Primary Insurance: MEDICARE A & B Anticipated DC Date: 10-09-2016 Planned Disposition: Home DCP follow-up note: CM MET WITH PT IN ROOM TO DISCUSS DISCHARGE NEEDS AND PLANNING. PT WOULD LIKE A SHOWER CHAIR. CM ADVISED THAT HER INSURANCE WILL NOT COVER THE SHOWER CHAIR. PT WILL TRY TO SHOP AROUND AND GET A GOOD ROBLES FOR THE SHOWER CHAIR ON HER OWN. CM DISCUSSED AVAILABILITY OF HOME HEALTH, REHAB SERVICES AND MEDICAL EQUIPMENT. PT DENIES DISCHARGE NEEDS. FAMILY TO TRANSPORT HOME AT DISCHARGE. IMPORTANT MESSAGE FROM MEDICARE PROVIDED AND EXPLAINED. Jony Jackson, CASE MANAGEMENT
[2016-10-08 13:17] VITALS: BP 120/70
[2016-10-08 14:55] LABS: PROTIME 30.2 SECONDS (11.6-15.0)
[2016-10-08 15:22] LABS: INR 2.85 (0.85-1.17)
[2016-10-08 16:27] VITALS: BP 118/64
--- NOTE | 2016-10-08 19:03 | NUR ---
SITTING UP IN BED, AAOX3, SKIN WARM AND DRY, RESP UNLABORED, IV PATENT TO RIGHT UPPER ARM, NO DISTRESS NOTED
[2016-10-08 20:00] VITALS: BP 113/62
[2016-10-09] VITALS: BP 101/61
[2016-10-09 04:00] VITALS: BP 107/64
--- NOTE | 2016-10-09 04:26 | NUR ---
SUPERVISOR SAWMILL AT BEDSIDE TO OBTAIN VITALS, CALL LIGHT IN REACH. WILL CONTINUE WITH PLAN OF CARE.
--- NOTE | 2016-10-09 07:15 | NUR ---
RESTING QUIETLY NAD NOTED
--- NOTE | 2016-10-09 07:30 | NUR ---
ASSESSMENT COMPLETED.TELEMERTY SHOWS CAF WITH A RATE OF 84. RIGHT MIDLINE IV PATENT. UP IN CHAIR, LEFT FOOT WITH FOOT DROP. WILL MONITOR
[2016-10-09 08:07] VITALS: BP 131/74
--- NOTE | 2016-10-09 10:41 | NUR ---
Nutrition follow-up: Diet: Consistent CHO PO intake 75-100% of meals Labs: FSBS with good control noted Wt: 188# RDN following.
[2016-10-09 11:36] VITALS: BP 125/62
--- NOTE | 2016-10-09 15:22 | NUR ---
UP IN BEDSIDE CHAIR. DENIES ANY NEEDS. FAMILY AT BEDSIDE. TELEMERTY SHOWS CAF. CALL LIGHT IN REACH
[2016-10-09 15:54] VITALS: BP 111/66
[2016-10-09 20:00] VITALS: BP 107/65
--- NOTE | 2016-10-09 22:22 | NUR ---
HS MEDS GIVEN, BS 117, NO COVERAGE NEEDED PER S/S. PT DENIES PAIN OR NEEDS, BED LOW, CL IN REACH.
--- NOTE | 2016-10-10 00:26 | NUR ---
NOTIFIED BY MT THAT PT HAS CONVERTED TO SR, HR 62.
--- NOTE | 2016-10-10 03:13 | NUR ---
RESTING WITH EYES CLOSED, RESPERATIONS EVEN, NO S/S DISTRESS NOTED.
[2016-10-10 04:00] VITALS: BP 130/73
--- NOTE | 2016-10-10 04:03 | NUR ---
COMMUNITY RELATIONS OFFICER AT BEDSIDE TO OBTAIN VITALS, CALL LIGHT IN REACH. WILL CONTINUE TO MONITOR.
--- NOTE | 2016-10-10 06:52 | NUR ---
NOTIFIED BY EXPELLER OPERATOR THAT PT HAD JUST WENT BACK INTO CONTROLLED A FIB WITH HR OF 84, WILL CONT TO MONITOR.
[2016-10-10] MEDS ORDERED: NYSTATIN ORAL SU5 ML PO (07:06)
[2016-10-10] MEDS ORDERED: VIBRAMYCIN 100100 MG PO (07:06)
[2016-10-10] MEDS ORDERED: FEXOFENADINE H180 MG PO (07:06)
[2016-10-10] MEDS ORDERED: BROVANA15 MCG/2 M INH (07:06)
[2016-10-10] MEDS ORDERED: LASIX40 MG PO (07:07)
[2016-10-10] MEDS ORDERED: LOPRESSOR25 MG PO (07:07)
[2016-10-10] MEDS ORDERED: COUMADIN2.5 MG PO (07:07)
[2016-10-10] MEDS ORDERED: ATROVENT 0.02%2.5 ML UPD (07:07)
[2016-10-10] MEDS ORDERED: PULMICORT0.5 MG/21 UPD (07:08)
[2016-10-10] MEDS ORDERED: BENZONATATE200 MG PO (07:08)
[2016-10-10] MEDS ORDERED: K-TAB10 MEQ PO (07:08)
[2016-10-10] MEDS ORDERED: STERAPRED DS 1210 MG PO (07:09)
--- NOTE | 2016-10-10 07:15 | NUR ---
ASSESSMENT COMPLETED. DENIES ANY NEEDS. TELEMERTY SHOW SR 76. RIGHT MIDLINE SL. LEFT FOOT DROP. UP AB TAISHA. WILL MONITOR.
[2016-10-10 08:04] VITALS: BP 153/95
--- NOTE | 2016-10-10 08:09 | NUR ---
RESTING QUIETLY NAD NOTED
--- NOTE | 2016-10-10 09:20 | NUR ---
Patient Name: KAVEH OHARA Encounter No: [id number] : 1945 Primary Insurance: MEDICARE A & B Anticipated DC Date: 10-09-2016 Planned Disposition: Home DCP follow-up note: OBDULIA RECEIVED ORDER FOR NEBULIZER; RN OBDULIA BOLANOS SPOKE TO PT WHO REQUESTED HOME DELIVERY AND WOULD LIKE TO OBTAIN NEBULIZER FROM [facility]. OBDULIA CALLED [facility], , PROVIDED REFERRAL INFORMATION TO MELIDA, REQUESTED HOME DELIVERY PER PT AND ADVISED THAT SHE WILL NEED TO OBTAIN ANY NEEDED SIGNATURES FROM DR. REYNOLDS IN CLINIC. REFERRAL FAXED TO [facility] AT [phone]. [facility] TO ARRANGE HOME DELIVERY OF NEBLULIZER. EDIS PENA, CASE MANAGEMENT
[2016-10-10 11:48] VITALS: BP 142/76
--- NOTE | 2016-10-10 12:40 | NUR ---
WENT OVER DC PAPERWORK WITH PT PT VERBALIZED UNDERSTANDING. GIVEN PT DC INSTRUCTIONS IN YELLOW ENVELOPE. DC TELE. DC MIDLINE CATHETER 16 CM WITH CATH TIP INTACT. PT WAITING ON HER RIDE.
--- NOTE | 2016-10-10 13:23 | NUR ---
TO PRIVATE CAR PER WHEELCHAIR.
--- NOTE | 2016-10-10 16:08 | NUR ---
CM RECEIVED ORDER TO ARRANGE OP PT FOR PATIENT. PATIENT WOULD LIKE PT AT [facility]. CM PLACED CALL TO [facility] AND SPOKE TO KORIN TO INFORM OF REFERRAL. CM FAXED ORDER TO [facility] AND KORIN STATED SHE WOULD CALL PATIENT TO ARRANGE FIRST PT APPT. PT IS TO BE FITTED FOR [facility] BY [facility] ON 10/11/16 AND [facility] WILL BE CUSTOM FIT FOR HER. FREDY TO CALL PATIENT TO ARRANGE TIME FOR FITTING ON 10/11/16.
--- NOTE | 2016-10-15 09:13 | CN ---
PATIENT NAME:KAVEH LIM MEDICAL RECORD: [id number] : [birth year] LOCATION:[facility].2122 ADMIT DATE: 09/30/16 ACCOUNT: [id number] CONSULTING PHYSICIAN: SHA RÍOS MD REFERRING PHYSICIAN: RONALD REYNOLDS DO DATE OF CONSULTATION: 10/01/2016 CONSULT REQUESTING PHYSICIAN: Dr. Ronald Reynolds. REASON FOR CONSULTATION: Acute cough, shortness of breath and wheezing. HISTORY OF PRESENT ILLNESS: Ms. Lim is a 71-year-old female who was complaining of shortness of breath, cough or wheezing. She was seen in Dr. Cohen's office last week, given some inhaler, Mucinex, and Singulair, but the patient states she still continued to cough. The cough is worse at night. She hears herself wheezing. She has shortness of breath with mild exertion. She was seen in Dr. Reynolds's office yesterday and admitted for possible flare up of congestive heart failure and asthma. She denies any fever or chill. There are no night sweats. She does have gastroesophageal reflux symptoms and heartburn. Also, she has allergic rhinitis with some posterior nasal drip, it would make her cough. PAST MEDICAL HISTORY: 1. Asthma. 2. Hypertension. 3. Atrial fibrillation. 4. Hyperlipidemia. PAST SURGICAL HISTORY: 1. Cholecystectomy. 2. Hysterectomy. 3. Status post pacemaker and defibrillator placement. 4. Knee surgery. ALLERGIES: SHE IS ALLERGIC TO PENICILLIN AND SULFA. [facility]. PERSONAL AND SOCIAL HISTORY: The patient has a remote history of smoking. She is a nondrinker. FAMILY HISTORY: Significant for cardiovascular disease. PHYSICAL EXAMINATION: GENERAL: Now, the patient is lying comfortable. She is not in acute distress. VITAL SIGNS: The blood pressure is 127/68, pulse is 80, respiration is 18, temperature 98.1, and SPO2 is 94% on room air. HEENT: Conjunctivae are pink. Sclerae nonicteric. NECK: Supple, no JVD. CHEST: The chest excursion is minimal on both sides. Wheeze on forceful expiration. HEART: Rhythm regular, normal sound, no murmur. ABDOMEN: Soft, bowel sounds present. No hepatosplenomegaly. CONSULT REPORT [id number] KAVEH LIM RECTAL: Deferred. EXTREMITIES: No cyanosis, no clubbing, no pedal edema. SKIN: Warm, normal turgor. CENTRAL NERVOUS SYSTEM: The patient is awake and alert. There is no obvious cranial nerve abnormality. The gait was not tested. CHEST RADIOGRAPH: There is hyperinflation, no acute infiltrate. OTHER LABORATORY DATA: CBC: The WBC is 8.6, hemoglobin 14.2, hematocrit 45.1, the platelet count 271. Chemistry: Sodium is 141, potassium 3.4, BUN is 21, creatinine 1.3, glucose 106. INR is 1.66. IMPRESSION: 1. Acute exacerbation of asthma. 2. Tracheobronchitis. 3. Acute cough secondary to above. 4. Congestive heart failure, chronic systolic dysfunction with EF of 30%. 5. Gastroesophageal reflux disease. 6. Allergic rhinitis. 7. Diarrhea. RECOMMENDATION: 1. I will discontinue the Advair, start her on Brovana and budesonide nebulizer. Start methylprednisolone IV. 2. Tussionex cough syrup. 3. Xopenex nebulizer. Start on ipratropium nebulizer. 4. Start her on Flonase nasal spray and Rhonda. 5. GERD precaution given. Dr. Reynolds, once again thanks for involving me in the care of Ms. Lim. TRANSINT:[id number] Voice Confirmation ID: [id number] DOCUMENT ID: [id number] SHA RÍOS MD at 0913 CC: RONALD REYNOLDS DO [id number] DICTATION DATE: 10/01/16 1453 HISTORICAL MANUSCRIPTS CURATOR: 10/01/16 1537 DIS IN 10/10/16 [id number] [place] [address]
== END 2016-10-10 13:24 | disposition home or self-care (01) | DRG 309 ==
LOC: D.M2 16:12
PROVIDERS: Family Medicine; ADMIT Family Medicine
DX: I48.1 Persistent atrial fibrillation (principal); I50.22 Chronic systolic (congestive) heart failure; J45.901 Unspecified asthma with (acute) exacerbation; J44.1 Chronic obstructive pulmonary disease with (acute) exacerbation; I10 Essential (primary) hypertension; E78.5 Hyperlipidemia, unspecified; K21.9 Gastro-esophageal reflux disease without esophagitis; M21.371 Foot drop, right foot

== ENCOUNTER 2016-11-03 11:00 | Outpatient (CLI) | payer MEDICARE, OTHER ==
[~2016-11-03] VITALS: Ht 170.2 cm; Wt 81.8 kg
--- NOTE | ~2016-11-03 | HEMODYNAMI ---
PATIENT:KAVEH OHARA MEDICAL RECORD: [id number] : 43 LOCATION:DJ[facility]CAT ADMISSION DATE: 11/03/16 Generatedon:11/03/201613:19 Patient name: KAVEH OHARA Patient #: [id number] SSN: [id number] : 1945 Date of study: 11/03/2016 Page: Of Hemodynamic Procedure Report Patient Data Patient Demographics Procedure consent was obtained First Name: KAVEH Gender: Female Last Name: LEV : 1945 [facility] Initial: J Age: 71 year(s) Patient #: [id number] Race: SSN: [id number] Additional ID: [id number] Contact details Address: [address] [place] [address] State: [place] City: [place] Zip code: [address] Past Medical History Allergies Allergen Reaction Date Comments Reported Other allergy 05/08/2016 Penicillins,Sulfa Admission Admission Data Admission Date: 11/03/2016 Admission Time: 11:00 Arrival Date: 11/03/2016 Arrival Time: 13:00 Admit Source: Other Insurance Payor: Medicare Height (in.): 67 BSA: 1.97 (m2) Height (cm.): 170.18 BMI: 29.44 (kg/m2) Weight (lbs.): 188 Weight (kg.): 85.28 Procedure Procedure Types Cath Procedure Diagnostic Procedure Cardioversion Procedure Description Procedure Date Procedure Date: 11/03/2016 Procedure Start Time: 12:59 Procedure End Time: 13:12 Procedure Staff Name Function Panchito North MD Performing Physician Raven Christopher RT Scrub Bonnie Damon RN Nurse Raven Christopher RT Monitor Procedure Data Cath Procedure Fluoroscopy Diagnostic fluoroscopy Total fluoroscopy Time: 0 time: 0 min min Diagnostic fluoroscopy Total fluoroscopy dose: 0 dose: 0 mGy mGy Contrast Material Contrast Material Type Amount (ml) Isovue 370 0 Estimated blood loss: 5 ml Procedure Complications No complications Procedure Medications Medication Administration Route Dosage Oxygen NC 2 l/min Refer to Anesthesia Notes for Sedation Medications Hemodynamics Rest BSA: 1.97 (m2) O2 Consumption: Estimated: 215.11 (ml/min) O2 Consumption indexed : Estimated:109.19 (ml/min/m) Heart Rate: 116 (bpm) Snapshots Pre Cath Intra NCS Post Cath Vital Signs Time Heart Resp SPO2 NIBP (mmHg) Rhythm Pain Sedation Rate (ipm) (%) Status Level (bpm) 12:59:50 100 18 98 134/89(117) A-Fib 0 (11) 10(A) , No pain 13:03:06 128 20 92 91/64(81) A-Fib 0 (11) 6(A) , No pain 13:07:24 150 20 92 86/60(85) A-Flutter 0 (11) 4(A) , No pain 13:10:04 98 20 92 104/52(70) A-Flutter 0 (11) 4(A) , No pain 13:18:22 90 18 96 117/61(80) A-Flutter 0 (11) 10(A) , No pain Medications Time Medication Route Dose Verified Delivered Reason Notes Effectiven ess by by 12:58:55 Oxygen NC 2 Panchito Bonnie Per l/min Can Damon RN physician 12:59:01 Refer to Panchito Bonnie for Anesthesia Can Damon RN sedation Notes for Sedation Medications Procedure Log Time Note 12:45:25 Raven Christopher RT(R) sent for patient. Start room use. 12:48:57 Informed consent obtained and on chart 12:49:04 Diagnostic Cath Status : Elective 12:51:46 Admit Source: Other 12:51:48 Arrival Date: 11/03/2016 1:00:00 PM 12:52:00 Insurance Payor : Medicare 12:52:08 Patient Height : 170.18 inches 12:52:15 Patient Weight : 85.28 lbs 12:53:32 Time tracking: Regular hours 12:53:36 Plan of Care:Hemodynamics will remain stable., Cardiac rhythm will remain stable., Comfort level will be maintained., Respiratory function will remain adequate., Patient/ family verbilizes understanding of procedure., Procedure tolerated without complication., Recovers from procedure without complications.. 12:54:22 Patient received from Outpatients to [facility] 1 Alert and oriented. Tansferred to table in Supine position. 12:54:23 Warm blankets applied, and alaina hugger turned on for patient comfort. 12:54:23 Correct patient and procedure confirmed by team. 12:54:26 ECG and BP/O2 sat monitors applied to patient. 12:56:49 Vital chart was started 12:56:50 Baseline sample Acquired. 12:56:58 Full Disclosure recording started 12:57:08 H&P Date Dictated: 10/23/2016 Within 30 days and on chart., H&P Addendum completed by physician on day of procedure. (MUST COMPLETE FOR ALL OUTPATIENTS). 12:57:18 Pre-procedure instructions explained to patient. 12:57:18 Pre-op teaching completed and patient verbalized understanding. 12:57:19 Family in waiting room. 12:57:21 Patient NPO since Midnight. 12:57:27 Is the patient allergic to Iodine/contrast media? No. 12:57:29 Was the patient premedicated? No 12:57:30 Is patient on blood thinner?Yes 12:57:34 ACC The patient was administered the following blood thiners within the last 24 hours: Coumadin 12:57:36 Patient diabetic? No. 12:57:39 Previous problem with sedation/anesthesia? No ? 12:57:41 Snore? Yes 12:57:42 Sleep apnea? No 12:57:43 Deviated septum? No 12:57:47 Opens mouth fully? Yes 12:57:50 Sticks out tongue? Yes 12:57:59 Airway obstruction? No ? 12:58:02 Dentures? No ? 12:58:10 Pre procedure: right dorsailis pedis pulse 1+ Palpable, but thready & weak; easily obliterated 12:58:12 Patient pain scale 0/10 ?. 12:58:18 IV patent on arrival in left forearm with 0.9% NaCl at O. 12:58:25 Lab results completed and on chart. 12:58:30 Alarms reviewed by R. N. 12:58:31 Sharps counted by scrub and verified by R.N. 12:58:33 Physician arrived 12:58:34 --------ALL STOP TIME OUT------ 12:58:34 Final Timeout: patient, procedure, and site verified with staff and physician. All members of the team are in agreement. 12:58:39 Physical assessment completed. ASA score P 2 - A patient with mild systemic disease as per Panchito North MD. 12:58:45 Sedation plan: TIVA Propofol 12:58:55 Oxygen 2 l/min NC was given by Bonnie Damon RN; Per physician; 12:59:01 Refer to Anesthesia Notes for Sedation Medications was given by Bonnie Damon RN; for sedation; 12:59:49 Angel Mendenhall present and monitoring patient for TIVA. 12:59:54 Procedure started. 12:59:55 Quick combo pads placed on patients chest and back. 12:59:58 Defibrillator synced and charged to 200 Joules. 13:00:25 Baseline sample Acquired. 13:02:15 Shock delivered. 13:03:10 Unsuccessful cardioversion. 13:03:13 Defibrillator synced and charged to 360 Joules. 13:05:29 Shock delivered. 13:07:00 Unsuccessful cardioversion. 13:07:38 Defibrillator synced and charged to 360 Joules. 13:07:47 Shock delivered. 13:10:49 Procedure ended.(Physican Out) 13:11:08 Fluoroscopy time 00.00 minutes. 13:11:10 Fluoroscopy dose: 0 mGy 13:11:10 Flurop Dose total: 0 13:11:25 Contrast amount:Isovue 370 0ml. 13:11:27 Sharps counted by scrub and verified by R.N. 13:11:30 Insertion/operative site no bleeding no hematoma. 13:11:32 Post Procedure Pulses reassessed and unchanged 13:11:38 Post procedure rhythm: atrial flutter 13:11:47 Estimated blood loss: 5 ml 13:11:50 Post procedure instruction explained to patient.Patient verbalizes understanding. 13:11:51 Patient needs reinforcement of post procedure teaching. 13:12:35 Procedure and supply charges have been captured, reviewed, submitted and are correct. 13:12:40 Procedure Complication : No complications 13:12:42 Vital chart was stopped 13:12:43 See physician's report for complete and final results. 13:12:47 Report given to Pre/Post Procedure Room. 13:12:50 Patient transfered to Pre/Post Procedure Room with Stretcher. 13:12:52 Procedure ended. 13:12:52 Full Disclosure recording stopped 13:13:58 End room use (Document Last) Signature Audit [place] Stage Time Signature Unsigned Intra-Procedure 11/03/2016 Raven Christopher 1:19:03 PM RT(R) Signatures Monitor : Raven Christopher RT Signature : Date : Time : [place] [id number] [place] [address]
[~2016-11-03 11:00] MED LIST changes: +ATROVENT 0.02%2.5 ML UPD; +BENZONATATE200 MG PO; +BROVANA15 MCG/2 M INH; +FEXOFENADINE H180 MG PO; +K-TAB10 MEQ PO; +LASIX40 MG PO; +NYSTATIN ORAL SU5 ML PO; +PULMICORT0.5 MG/21 UPD; +STERAPRED DS 1210 MG PO; +VIBRAMYCIN 100100 MG PO
[2016-11-03 12:32] VITALS: BP 115/56; Ht 170.2 cm; Wt 81.8 kg
[2016-11-03 12:34] LABS: BASOPHILS 0.2 % (0.0-2.0); EOSINOPHILS 0.8 % (0-7); HEMATOCRIT 41.4 % (36.0-48.0); HEMOGLOBIN 13.3 g/dL (12-16); IMMATURE GRANULOCYTES 0.5 % (0-5); LYMPHOCYTES 16.1 % (15-50); MCH 26.7 pg (26.0-34.0); MCHC 32.1 g/dL (31.0-37.0); MCV 83.1 fL (80.0-100.0); MEAN PLATELET VOLUME 9.9 fL (7.4-10.4); MONOCYTES 6.1 % (2-11); NEUTROPHILS 76.3 % (40-80); RBC 4.98 10x6/uL (4.00-5.40); RDW 20.3 % (11.5-14.5); WBC 6.1 10x3/uL (4.8-10.8)
[2016-11-03 12:53] LABS: ANION GAP 15.2 mmol/L (8-16); CALCIUM 8.2 mg/dL (8.5-10.1); CARBON DIOXIDE 25.7 mmol/L (21.0-32.0); CREATININE - SERUM 1.2 mg/dL (0.6-1.3); POTASSIUM - SERUM 3.9 mmol/L (3.5-5.1)
[2016-11-03 13:03] LABS: PLATELET COUNT 220 10x3/uL (130-400)
[2016-11-03 13:08] LABS: INR 1.59 (0.85-1.17); PROTIME 18.9 SECONDS (11.6-15.0)
--- NOTE | 2016-11-04 15:29 | OP ---
PATIENT NAME: KAVEH OHARA MEDICAL RECORD: [id number] :43 LOCATION:D.CAT ADMISSION DATE: SURGEON: GUTIERREZ ANDRADE M.D. DATE OF OPERATION: 11/03/2016 REFERRING PHYSICIAN: Dr. Ronald Pinto. PROCEDURE PERFORMED: Cardioversion. INDICATION: A 71-year-old presents with persistent atrial fibrillation. DESCRIPTION OF THE PROCEDURE: The patient was brought back to the pathology laboratory technologist, ____ she remained in atrial fibrillation. She has been anticoagulated, been on antiarrhythmics. Sedation was performed by anesthesia in the form of propofol. Once the patient was adequately sedated, she received 1 discharge of 200 joules. At this point, the patient remained in atrial fibrillation. Next, she received 1 discharge of 360 joules. This resulted in patient going into atrial flutter with 2:1 block, at a rate of 150. At this point, she received a third discharge of 360 joules. At this point, the patient went back in atrial fibrillation with controlled rate of 80 beats per minute. IMPRESSION: Unsuccessful cardioversion. PLAN: I will likely refer the patient for atrial ablation. TRANSINT:[id number] Voice Confirmation ID: [id number] DOCUMENT ID: [id number] GUTIERREZ ANDRADE M.D. at 1529 CC: [id number] DICTATION DATE: 11/03/16 1313 NEGATIVE STRIPPER: 11/03/16 1456 [facility] CLI 11/03/16 [place] [address]
== END 2016-11-03 14:40 | disposition home or self-care (01) ==
LOC: D.CATH 11:00
PROVIDERS: Internal Medicine Cardiovascular Disease
DX: I48.91 Unspecified atrial fibrillation (principal); J45.909 Unspecified asthma, uncomplicated; K21.9 Gastro-esophageal reflux disease without esophagitis; I10 Essential (primary) hypertension; E11.9 Type 2 diabetes mellitus without complications

== ENCOUNTER 2016-12-03 09:37 | Emergency (ER) | payer MEDICARE, OTHER ==
[2016-11-03 12:32] VITALS: BMI 28.2
[2016-12-03 10:09] LABS: BASOPHILS 0.2 % (0.0-2.0); EOSINOPHILS 6.6 % (0-7); HEMATOCRIT 41.8 % (36.0-48.0); HEMOGLOBIN 13.2 g/dL (12-16); IMMATURE GRANULOCYTES 0.2 % (0-5); LYMPHOCYTES 14.8 % (15-50); MCH 27.6 pg (26.0-34.0); MCHC 31.6 g/dL (31.0-37.0); MCV 87.4 fL (80.0-100.0); MEAN PLATELET VOLUME 10.7 fL (7.4-10.4); MONOCYTES 9.8 % (2-11); NEUTROPHILS 68.4 % (40-80); PLATELET COUNT 200 10x3/uL (130-400); RBC 4.78 10x6/uL (4.00-5.40); RDW 17.8 % (11.5-14.5); WBC 8.3 10x3/uL (4.8-10.8)
[2016-12-03 10:38] LABS: ALBUMIN 2.8 g/dL (3.4-5.0); ALKALINE PHOSPHATASE 290 U/L (46-116); ALT (SGPT) 291 U/L (10-68); BILIRUBIN - TOTAL 0.68 mg/dL (0.2-1.3); CALC OSMOLALITY 287 mosm/kg (275-300); CALCIUM 8.6 mg/dL (8.5-10.1); CARBON DIOXIDE 29.3 mmol/L (21.0-32.0); CHLORIDE - SERUM 104 mmol/L (98-107); GLUCOSE 110 mg/dL (74-106); POTASSIUM - SERUM 3.1 mmol/L (3.5-5.1); PROTEIN - SERUM 6.3 g/dL (6.4-8.2); SODIUM 143 mmol/L (136-145); UREA NITROGEN 17 mg/dL (7-18); eGFR NON AFRICAN AMERICAN 58 mL/min (90-120)
[2016-12-03 10:46] LABS: CREATINE KINASE 47 UL (21-215); PRO BNP 273 pg/mL (0-125)
[2016-12-03 10:47] LABS: TROPONIN-I < 0.017 ng/mL (0.000-0.060)
[2016-12-03 11:03] LABS: APPEARANCE CLEAR (CLEAR); BILIRUBIN NEGATIVE (NEGATIVE); COLOR YELLOW (YELLOW); GLUCOSE NEGATIVE (NEGATIVE); KETONE NEGATIVE (NEGATIVE); LEUKOCYTE ESTERASE NEGATIVE (NEGATIVE); NITRITE NEGATIVE (NEGATIVE); PROTEIN NEGATIVE (NEGATIVE); SPECIFIC GRAVITY 1.015 (1.005-1.020); UROBILINOGEN NORMAL (NORMAL)
[2016-12-03 11:09] LABS: UDS - AMPHET NEGATIVE QUAL (NEGATIVE); UDS - BARB NEGATIVE QUAL (NEGATIVE); UDS - BENZO POSITIVE QUAL (NEGATIVE); UDS - COCAINE NEGATIVE QUAL (NEGATIVE); UDS - METH NEGATIVE QUAL (NEGATIVE); UDS - OPIATE NEGATIVE QUAL (NEGATIVE); UDS - PCP NEGATIVE QUAL (NEGATIVE); UDS - THC NEGATIVE QUAL (NEGATIVE)
== END 2016-12-03 11:27 | disposition home or self-care (01) ==
LOC: D.ER 09:37
PROVIDERS: Family Medicine
DX: Z91.81 History of falling (principal); R79.89 Other specified abnormal findings of blood chemistry; I48.91 Unspecified atrial fibrillation; I42.9 Cardiomyopathy, unspecified; I10 Essential (primary) hypertension; Z95.0 Presence of cardiac pacemaker

== ENCOUNTER → 2016-12-11 12:32 | Outpatient (CLI) | payer MEDICARE, OTHER ==
[2016-11-03 12:32] VITALS: BMI 28.2
== END | disposition home or self-care (01) ==
LOC: D.CT 12:32
DX: R51 Headache (principal)

== ENCOUNTER → 2017-05-15 11:07 | Outpatient (CLI) | payer MEDICARE, OTHER ==
[2016-11-03 12:32] VITALS: BMI 28.2
[~2017-05-15 11:07] MED LIST changes: +HYDROCODONE-APA1 TAB PO
== END | disposition home or self-care (01) ==
LOC: D.MAMMO 11:07
DX: R92.8 Other abnormal and inconclusive findings on diagnostic imaging of breast (principal)

== ENCOUNTER 2017-05-18 10:40 | Day surgery (SDC) | payer MEDICARE, OTHER ==
[2017-05-15 12:33] LABS: HEMOGLOBIN 12.1 g/dL (12-16); MCH 24.8 pg (26.0-34.0); MCHC 30.3 g/dL (31.0-37.0); MCV 82.1 fL (80.0-100.0); MEAN PLATELET VOLUME 10.1 fL (7.4-10.4); RBC 4.87 10x6/uL (4.00-5.40); RDW 17.3 % (11.5-14.5); WBC 9.2 10x3/uL (4.8-10.8)
[2017-05-15 12:43] LABS: APTT 32.6 SECONDS (22.8-39.4); INR 1.25 (0.85-1.17); PROTIME 15.6 SECONDS (11.6-15.0)
[2017-05-15 12:44] LABS: ANION GAP 14.9 mmol/L (8-16); CARBON DIOXIDE 25.1 mmol/L (21.0-32.0); CREATININE - SERUM 0.9 mg/dL (0.6-1.3)
[~2017-05-18] VITALS: Ht 170.2 cm; Wt 92.5 kg
--- NOTE | ~2017-05-18 | OP ---
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 PROCEDURE: Peroneal nerve decompression of the right leg. SURGEON: Isamar Baptiste MD. ANESTHESIA: General. INTRAOPERATIVE COMPLICATIONS: None. SUMMARY OF PATHOLOGIC FINDINGS: The patient was indeed found to have tight fibrous bands about the peroneal nerve both proximally and distally. OPERATIVE SUMMARY IN DETAIL: After obtaining the appropriate preoperative orthopedic surgery consent as well as anesthetic consultation, evaluation and inspection and placed on the operating table in supine position. After general laryngeal mask was administered, tourniquet was placed about the proximal aspect of the right lower extremity. At this point, the patient was placed in a left lateral decubitus position. All pressure points were well padded to include down leg peroneal pad as well as axillary roll. She was held firmly to the operating table using the vacuum pack suction system. Right lower extremity was then prepped and draped in routine sterile fashion. The leg was elevated and exsanguinated, tourniquet inflated to 350 mmHg. Planned incision was made in a diagonal fashion in line with the peroneal nerve, which dissection was carried down to the peroneal nerve was very easily identified. Serial and sequential removal of all adhesions at this area and then very proximal and very distal to it resulted in excellent release of the nerve for approximately 10 cm proximally and distally. Having completed this, the wound was irrigated and closed with 2-0 Vicryl followed by skin namita. Sterile dressings were applied. The patient was awakened, taken to recovery in stable condition. All final needle and sponge counts were correct. TRANSINT:[id number] Voice Confirmation ID: [id number] DOCUMENT ID: [id number] ISAMAR BAPTISTE MD CC: [id number] DICTATION DATE: 05/18/17 1749 LENS EDGER: 05/18/172015 [facility] 05/18/17 [place] [address]
[~2017-05-18 10:40] MED LIST changes: -HYDROCODONE-APA1 TAB PO
[2017-05-18 14:02] VITALS: BP 140/71; Ht 170.2 cm; Wt 92.5 kg
[2017-05-18] MEDS ORDERED: HYDROCODONE-APA1 TAB PO (15:42)
--- NOTE | 2017-05-18 16:28 | NUR ---
ANESTHESIA (DR CABELLO) NOTIFIED OF PATIENT PAIN 8/10 AFTER 2 MG DILAUDID. ORDERS RECIEVED FOR ANOTHER 1 MG DILAUDID AND 6 MG PHENERGAN IF NEEDED. BOTH GIVEN. PATIENT RATES PAIN 6/10 UPON DC FROM RECOVERY.
--- NOTE | 2017-05-18 18:30 | NUR ---
PATIENT STATES HER PAIN IS DOWN NOW TO A 6 AND IT'S "REALLY NOT THAT BAD, I REALLY JUST WANT TO GO HOME." PATIENT AMBULATES TO BATHROOM WITH WALKER, LEFT WRIST PIV DC'D WITH TIP INTACT. DRESSING IN PERSONAL CLOTHING WITH FRIEND'S HELP
--- NOTE | 2017-05-18 18:50 | NUR ---
DISCHARGE INSTRUCTIONS REVIEWED WITH PATIENT AND FRIEND, DISCHARGED HOME VIA WHEELCHAIR TO PRIVATE VEHICLE WITH FRIEND
== END 2017-05-18 18:50 | disposition home or self-care (01) ==
LOC: D.OPS 10:40 → D.PAN 15:00 → D.OPS 18:50
PROVIDERS: Anesthesiology
DX: M21.371 Foot drop, right foot (principal); I10 Essential (primary) hypertension; I48.91 Unspecified atrial fibrillation; I42.9 Cardiomyopathy, unspecified; Z95.0 Presence of cardiac pacemaker; J45.909 Unspecified asthma, uncomplicated; E11.9 Type 2 diabetes mellitus without complications; K21.9 Gastro-esophageal reflux disease without esophagitis; Z01.812 Encounter for preprocedural laboratory examination

== ENCOUNTER → 2017-08-24 09:28 | Outpatient (CLI) | payer MEDICARE, OTHER ==
[2017-05-18 14:02] VITALS: BMI 32.0
[~2017-08-24 09:28] MED LIST changes: +HYDROCODONE-APA1 TAB PO
== END | disposition home or self-care (01) ==
LOC: D.RT 09:28
DX: J45.909 Unspecified asthma, uncomplicated (principal)

== ENCOUNTER → 2017-12-24 12:29 | Outpatient (CLI) | payer MEDICARE, OTHER ==
[2017-05-18 14:02] VITALS: BMI 32.0
== END | disposition home or self-care (01) ==
LOC: D.CT 12:29
DX: R51 Headache (principal)

== ENCOUNTER → 2018-12-14 12:14 | Outpatient (CLI) | payer MEDICARE, OTHER ==
[2017-05-18 14:02] VITALS: BMI 32.0
== END | disposition home or self-care (01) ==
LOC: D.US 12:14
PROVIDERS: ATTEND Internal Medicine Cardiovascular Disease
DX: I70.219 Atherosclerosis of native arteries of extremities with intermittent claudication, unspecified extremity (principal); M79.605 Pain in left leg; M79.604 Pain in right leg

== ENCOUNTER → 2019-02-21 07:56 | Outpatient (CLI) | payer MEDICARE, OTHER ==
[2017-05-18 14:02] VITALS: BMI 32.0
== END | disposition home or self-care (01) ==
LOC: D.RT 07:56 → D.RAD 08:15 → D.RT 02-22 08:00
PROVIDERS: ATTEND Internal Medicine Pulmonary Disease
DX: J45.909 Unspecified asthma, uncomplicated (principal)

== ENCOUNTER 2019-05-07 13:29 | Inpatient (IN) | payer MEDICARE, OTHER ==
[~2019-05-07] VITALS: Ht 170.2 cm; Wt 90.7 kg
--- NOTE | ~2019-05-07 | HEMODYNAMI ---
PATIENT:KAVEH OHARA MEDICAL RECORD: [id number] : 43 [id number] ADMISSION DATE: 05/07/19 Generatedon:05/11/201913:23 Patient name: KAVEH OHARA Patient #: [id number] SSN: [id number] : 1945 Date of study: 05/11/2019 Page: Of Hemodynamic Procedure Report Patient Data Patient Demographics Procedure consent was obtained First Name: KAVEH Gender: Female Last Name: LEV : 1945 [place] Initial: J Age: 73 year(s) Patient #: [id number] Race: SSN: [id number] Additional ID: [id number] Contact details Address: [address] [place] [address] State: [place] City: [place] Zip code: [address] Past Medical History Allergies Allergen Reaction Date Comments Reported Other allergy 05/08/2016 Penicillins,Sulfa Admission Admission Data Admission Date: 05/07/2019 Admission Time: 19:11 Arrival Date: 05/11/2019 Arrival Time: 19:11 Admit Source: Other Insurance Payor: Medicare Room #: D.2123 Height (in.): 66.93 BSA: 2.02 (m2) Height (cm.): 170 BMI: 31.49 (kg/m2) Weight (lbs.): 200.62 Weight (kg.): 91 Lab Results Lab Result Date: 05/11/2019 Lab Result Time: 0:00 Biochemistry Name Units Result Min Max BUN mg/dl 22 --(----)-* 7 18 Creatinine mg/dl 1.2 --(---*)-- 0.6 1.3 CBC Name Units Result Min Max Hemoglobin g/dl 10.9 *-(----)-- 13.5 17.5 Procedure Procedure Types Cath Procedure Diagnostic Procedure Cardioversion External Procedure Description Procedure Date Procedure Date: 05/11/2019 Procedure Start Time: 13:14 Procedure End Time: 13:18 Procedure Staff Name Function Panchito North MD Performing Physician Raven Christopher RT Monitor Garry Johnston RN Nurse Dariana Henriquez CRNA Additional personnel Indication Atrial fibrillation Procedure Data Cath Procedure Estimated blood loss: 0 ml Procedure Complications No complications Procedure Medications Medication Administration Route Dosage Oxygen etCO2 Nasal cannula 2 l/min Refer to Anesthesia Notes for Sedation Medications Hemodynamics Rest BSA: 2.02 (m2) HGB: 10.9 (g/dl) O2 Consumption: Estimated: 245.69 (ml/min) O2 Consumption indexed: Estimated:121.63 (ml/min/m) Heart Rate: 150 (bpm) Snapshots Pre Cath Intra NCS Post Cath Vital Signs Time Heart Resp SPO2 etCO2 NIBP Rhythm Pain Sedation Rate (ipm) (%) (mmHg) (mmHg) Status Level (bpm) 13:13:49 139 11 99 16.5 134/77(94) NSR 0 (11) 10(A) , No pain 13:17:30 98 37 92 20 114/61(75) NSR 0 (11) 9(A) , No pain 13:20:55 94 30 93 21.5 106/57(83) NSR 0 (11) 10(A) , No pain Medications Time Medication Route Dose Verified Delivered Reason Notes Effective ness by by 13:13:55 Oxygen etCO2 2 Panchito Castañeda used for Nasal l/min Can Johnston tobacco educator cannula 13:13:59 Refer to Panchitoyareli Castañeda Anesthesia Can Johnston RN Notes for Sedation Medications Procedure Log Time Note 12:46:17 Informed consent obtained and on chart 12:46:22 Diagnostic Cath Status : Elective 12:46:47 Indication : Atrial fibrillation 12:47:11 Admit Source: Other 12:47:14 Arrival Date: 05/11/2019 7:11:00 PM 12:47:37 Insurance Payor : Medicare 12:47:52 Patient Weight : 200.62 lbs 12:47:56 Patient Height : 66.93 inches 12:48:16 Lab Result : Hemoglobin 10.9 g/dl 12:48:16 Lab Result : Creatinine 1.2 mg/dl 12:48:16 Lab Result : BUN 22 mg/dl 12:48:28 Procedure Status Cardioversion. 12:48:32 Raven Christopher RT(R) sent for patient. Start room use. 12:48:33 Time tracking: Regular hours (M-F 7:00 - 5:00) 12:48:39 Plan of Care:Hemodynamics will remain stable., Cardiac rhythm will remain stable., Comfort level will be maintained., Respiratory function will remain adequate., Patient/ family verbilizes understanding of procedure., Procedure tolerated without complication., Recovers from procedure without complications.. 13:04:31 Patient received from Med II to CCL 1 Alert and oriented. Tansferred to table in Supine position. 13:04:32 Dariana Henriquez CRNA present and monitoring patient for TIVA. 13:04:33 Warm blankets applied, and alaina hugger turned on for patient comfort. 13:04:34 Correct patient and procedure confirmed by team. 13:04:38 ECG and BP/O2 sat monitors applied to patient. 13:06:39 3a) 45-59 Moderately reduced kidney function. 13:10:46 iv removed from lt forearm with cath intact due to infilltration. 13:12:19 Vital chart was started 13:12:20 Baseline sample Acquired. 13:12:24 Rhythm: atrial fibrillation 13:12:25 Full Disclosure recording started 13:12:30 H&P Date Dictated: 05/11/2019 Within 30 days and on chart., H&P Addendum completed by physician on day of procedure. (MUST COMPLETE FOR ALL OUTPATIENTS). 13:12:33 Pre-procedure instructions explained to patient. 13:12:34 Pre-op teaching completed and patient verbalized understanding. 13:12:49 Family in waiting room. 13:12:50 Patient NPO since Midnight. 13:12:53 Is the patient allergic to Iodine/contrast media? No. 13:12:55 Was the patient premedicated? No 13:12:57 Is patient on blood thinner?Yes 13:13:04 ACC The patient was administered the following blood thiners within the last 24 hours: Coumadin 13:13:14 Patient diabetic? No. 13:13:16 Previous problem with sedation/anesthesia? No ? 13:13:19 Snore? Yes 13:13:20 Sleep apnea? No 13:13:21 Deviated septum? No 13:13:22 Opens mouth fully? Yes 13:13:22 Sticks out tongue? Yes 13:13:24 Airway obstruction? No ? 13:13:29 Dentures? No ? 13:13:34 Patient pain scale 0/10 ?. 13:13:55 Oxygen 2 l/min etCO2 Nasal cannula was administered by Garry Johnston RN; used for procedure; 13:13:57 IV started by Garry Johnston RN inright forearm with a 20/22 gauge dual lumen IV catheter with 0.9% NaCl at KVO. 13:13:59 Refer to Anesthesia Notes for Sedation Medications was administered by Garry Johnston RN; ; 13:14:02 Lab results completed and on chart. 13:14:05 Alarms reviewed by R. N. 13:14:05 Sharps counted by scrub and verified by R.N. 13:14:06 Physician arrived 13:14:07 --------ALL STOP TIME OUT------ 13:14:08 Procedure started. 13:14:09 Final Timeout: patient, procedure, and site verified with staff and physician. All members of the team are in agreement. 13:14:10 Sedation plan: TIVA Medication:Propofol 13:14:10 Physical assessment completed. ASA score P 2 - A patient with mild systemic disease as per Panchito North MD. 13:14:13 Fire Safety Assessment: A--An alcohol-based skin anteseptic being used preoperatively., C--Open oxygen or nitrous oxide is being used., D--An ESU, laser, or fiber-optic light is being used. 13:14:17 Quick combo pads placed on patients chest and back. 13:14:21 Defibrillator synced and charged to 50 Joules. 13:14:22 Shock delivered. 13:14:47 Patient cardioverted to sinus rhythm . 13:17:31 Procedure ended.(Physican Out) 13:17:46 Insertion/operative site no bleeding no hematoma. 13:17:51 Post procedure rhythm: sinus rhythm 13:17:55 Estimated blood loss: 0 ml 13:17:57 Post procedure instruction explained to patient.Patient verbalizes understanding. 13:17:58 Patient needs reinforcement of post procedure teaching. 13:18:09 Procedure and supply charges have been captured, reviewed, submitted and are correct. 13:18:15 Procedure Complication : No complications 13:18:17 Vital chart was stopped 13:18:28 See physician's report for complete and final results. 13:18:31 Report given to Med II. 13:18:34 Patient transfered to Med II with Stretcher. 13:18:43 Procedure ended. 13:18:43 Full Disclosure recording stopped 13:20:31 End room use (Document Last) Signature Audit [place] Stage Time Signature Unsigned Intra-Procedure 05/11/2019 Raven Christopher 1:22:56 PM RT(R) Signatures Performing Physician : Signature : Panchito North MD Date : Time : Monitor : Raven Christopher RT Signature : Date : Time : Nurse : Garry Johnston RN Signature : Date : Time : [facility] [address] [address]
[2019-05-07] MEDS ORDERED: CARDIZEM120 MG PO (13:35)
[2019-05-07 14:14] LABS: BASOPHILS 0.4 % (0-2); EOSINOPHILS 3.5 % (0-7); HEMATOCRIT 35.2 % (36.0-48.0); HEMOGLOBIN 10.5 g/dL (12-16); IMMATURE GRANULOCYTES 0.2 % (0-5); LYMPHOCYTES 26.1 % (15-50); MCH 21.4 pg (26.0-34.0); MCHC 29.8 g/dL (31.0-37.0); MCV 71.8 fL (80.0-100.0); MEAN PLATELET VOLUME 9.3 fL (7.4-10.4); MONOCYTES 7.4 % (2-11); NEUTROPHILS 62.4 % (40-80); WBC 9.8 10x3/uL (4.8-10.8)
[2019-05-07 14:21] LABS: PLATELET COUNT 295 10x3/uL (130-400)
[2019-05-07 14:30] LABS: APTT 34.3 SECONDS (22.8-39.4); INR 2.33 (0.85-1.17); PROTIME 24.8 SECONDS (11.6-15.0)
[2019-05-07 14:38] LABS: ALBUMIN 3.4 g/dL (3.4-5.0); ALKALINE PHOSPHATASE 85 U/L (46-116); ALT (SGPT) 27 U/L (10-68); BILIRUBIN - TOTAL 0.47 mg/dL (0.2-1.3); CALC OSMOLALITY 284 mosm/kg (275-300); CALCIUM 8.5 mg/dL (8.5-10.1); CARBON DIOXIDE 22.3 mmol/L (21.0-32.0); CHLORIDE - SERUM 105 mmol/L (98-107); CREATININE - SERUM 1.4 mg/dL (0.6-1.3); GLUCOSE 149 mg/dL (74-106); POTASSIUM - SERUM 4.1 mmol/L (3.5-5.1); PROTEIN - SERUM 6.8 g/dL (6.4-8.2); SODIUM 140 mmol/L (136-145); UREA NITROGEN 20 mg/dL (7-18); eGFR NON AFRICAN AMERICAN 39 mL/min (90-120)
[2019-05-07 14:49] VITALS: BP 97/52
[2019-05-07 14:50] LABS: CKMB 0.9 U/L (0.0-3.6); CREATINE KINASE 62 UL (21-215); PRO BNP 4033 pg/mL (0-125)
[2019-05-07 14:51] LABS: TROPONIN-I < 0.017 ng/mL (0.000-0.060)
[2019-05-07 16:13] VITALS: BP 128/53
[2019-05-07] MEDS ORDERED: WELCHOL625 MG PO (23:46)
[2019-05-07] MEDS ORDERED: SINGULAIR10 MG PO ×2 (23:47→23:51)
[2019-05-07] MEDS ORDERED: LOPRESSOR25 MG PO (23:50)
[2019-05-07] MEDS ORDERED: VITAMIN D10000 UNI1 PO (23:52)
[2019-05-07] MEDS ORDERED: COUMADIN5 MG PO (23:54)
[2019-05-07] MEDS ORDERED: COUMADIN2.5 MG PO (23:54)
[2019-05-08] VITALS (7 sets, daily range): BP systolic 103–132; BP diastolic 58–79; BMI 31.4
[2019-05-08 05:26] LABS: BASOPHILS 0.4 % (0-2); HEMATOCRIT 35.3 % (36.0-48.0); HEMOGLOBIN 10.6 g/dL (12-16); IMMATURE GRANULOCYTES 0.2 % (0-5); LYMPHOCYTES 26.4 % (15-50); MCH 21.5 pg (26.0-34.0); MCV 71.7 fL (80.0-100.0); MEAN PLATELET VOLUME 9.8 fL (7.4-10.4); MONOCYTES 7.9 % (2-11); NEUTROPHILS 62.1 % (40-80); PLATELET COUNT 275 10x3/uL (130-400); RBC 4.92 10x6/uL (4.00-5.40)
[2019-05-08 05:48] LABS: ALBUMIN 3.2 g/dL (3.4-5.0); ALKALINE PHOSPHATASE 86 U/L (46-116); ALT (SGPT) 22 U/L (10-68); CALC OSMOLALITY 286 mosm/kg (275-300); CALCIUM 8.7 mg/dL (8.5-10.1); CARBON DIOXIDE 25.1 mmol/L (21.0-32.0); CHLORIDE - SERUM 104 mmol/L (98-107); CKMB 0.7 U/L (0.0-3.6); CREATINE KINASE 60 UL (21-215); CREATININE - SERUM 1.3 mg/dL (0.6-1.3); GLUCOSE 119 mg/dL (74-106); POTASSIUM - SERUM 3.6 mmol/L (3.5-5.1); PRO BNP 2684 pg/mL (0-125); PROTEIN - SERUM 6.7 g/dL (6.4-8.2); SODIUM 142 mmol/L (136-145); UREA NITROGEN 20 mg/dL (7-18); eGFR NON AFRICAN AMERICAN 42 mL/min (90-120)
[2019-05-08 05:50] LABS: TROPONIN-I < 0.017 ng/mL (0.000-0.060)
[2019-05-08 11:01] LABS: INR 2.57 (0.85-1.17); PROTIME 26.8 SECONDS (11.6-15.0)
[2019-05-08 11:24] LABS: % SATURATION 4 % (15-55); IRON 21 ug/dl (35-150); TOTAL IRON BIND CAPACITY 522 ug/dl (260-445)
[2019-05-08 11:27] LABS: UNSAT IRON BIND CAPACITY 501 ug/dl (150-375)
[2019-05-08 11:46] LABS: T4 THYROXIN - FREE 1.07 ng/dL (0.76-1.46); THYROID STIMULATING HORMONE 2.38 uIU/mL (0.36-3.74)
[2019-05-08 12:45] LABS: APPEARANCE CLEAR (CLEAR); BILIRUBIN NEGATIVE (NEGATIVE); COLOR YELLOW (YELLOW); GLUCOSE NEGATIVE (NEGATIVE); KETONE NEGATIVE (NEGATIVE); NITRITE NEGATIVE (NEGATIVE); PROTEIN NEGATIVE (NEGATIVE); SPECIFIC GRAVITY 1.015 (1.005-1.020); UROBILINOGEN NORMAL (NORMAL)
[2019-05-08 12:47] LABS: BACTERIA FEW /hpf (NONE SEEN); EPITHELIAL CELLS 0-5 /hpf (0-5); RED CELLS - URINE 0-5 /hpf (0-5); WHITE CELLS - URINE 0-5 /hpf (0-5)
[2019-05-09] VITALS: BP 114/48; BP 127/68
[2019-05-09 04:00] VITALS: BP 115/62
[2019-05-09 05:37] LABS: BASOPHILS 0.4 % (0-2); EOSINOPHILS 2.6 % (0-7); HEMATOCRIT 34.9 % (36.0-48.0); HEMOGLOBIN 10.2 g/dL (12-16); IMMATURE GRANULOCYTES 0.1 % (0-5); LYMPHOCYTES 25.6 % (15-50); MCHC 29.2 g/dL (31.0-37.0); MCV 71.8 fL (80.0-100.0); MEAN PLATELET VOLUME 9.2 fL (7.4-10.4); MONOCYTES 8.1 % (2-11); NEUTROPHILS 63.2 % (40-80); PLATELET COUNT 268 10x3/uL (130-400); RBC 4.86 10x6/uL (4.00-5.40); RDW 17.6 % (11.5-14.5); WBC 8.1 10x3/uL (4.8-10.8)
[2019-05-09 06:06] LABS: ANION GAP 11.5 mmol/L (8-16); CALCIUM 8.3 mg/dL (8.5-10.1); CARBON DIOXIDE 27.1 mmol/L (21.0-32.0); CREATININE - SERUM 1.1 mg/dL (0.6-1.3); POTASSIUM - SERUM 3.6 mmol/L (3.5-5.1)
[2019-05-09 08:39] VITALS: BP 136/73
[2019-05-09 11:43] VITALS: BP 133/77
--- NOTE | 2019-05-09 14:30 | CN ---
PATIENT NAME:KAVEH OHARA MEDICAL RECORD: [id number] : 43 LOCATION:. D.2123 ADMIT DATE: 05/07/19 ACCOUNT: [id number] CONSULTING PHYSICIAN: JACQUELINE SALEH MD REFERRING PHYSICIAN: BELLE UMANZOR MD DATE OF CONSULTATION: 05/08/2019 HISTORY OF PRESENT ILLNESS: A 73-year-old female with known history of atrial fibrillation, status post ablation, typically well controlled on class III agent, Multaq, admitted with 2- to 3-day history of increasing shortness of breath and volume overload. She feels like her heart was "out of balance." She was found to be in atrial fibrillation with RVR. We are asked to see her concerning her cardiovascular status. PAST MEDICAL HISTORY: Includes; 1. History of atrial fibrillation, status post ablation. 2. Hypertension. 3. Hyperlipidemia. 4. Diabetes mellitus. MEDICATIONS: Include metformin 500 mg p.o. daily, Protonix 40 daily, Lasix 40 daily, potassium 10 mEq b.i.d., simvastatin 40 daily, metoprolol 25 b.i.d., Multaq 400 b.i.d., diltiazem 120 daily, and warfarin per scale. ALLERGIES: PENICILLIN AND SULFA. SOCIAL HISTORY: Nonsmoker and nondrinker. No set exercise program. Easily takes care of all ADLs. REVIEW OF SYSTEMS: The patient reports easy bruising but reports no swollen glands. The patient reports no fever, no night sweats, no significant weight gain, no significant weight loss. No significant exercise tolerance. The patient reports no dry eyes, no irritation, no vision change. Patient reports no difficulty hearing and no ear pain. Patient reports no frequent nose bleeds or nose and sinus problems. Patient reports on arm pain on exertion. No shortness of breath while lying down. No history of heart murmur. Patient reports no cough, no wheezing or coughing up blood. Patient reports no abdominal pain, no vomiting. Normal appetite. No diarrhea and not vomiting blood. No nausea and no constipation. Patient reports no incontinence. No difficulty urinating. No hematuria. No increased frequency. Patient reports no muscle aches. No weakness, no arthralgias, no back pain. No swelling of the extremities. Patient reports no abnormal mole, no jaundice, no rashes. Reports no loss of consciousness. No weakness and no numbness. No seizures, dizziness, or headaches. The patient reports no depression, no sleep disturbance, feeling safe in a relationship and no alcohol abuse. Patient reports on fatigue. Reports no runny nose or sinus pressure. No itching, no hives, and no frequent sneezing. PHYSICAL EXAMINATION: GENERAL: Well developed, well nourished, appears stated age, in no acute distress. VITAL SIGNS: Pulse 113 and irregular. Blood pressure 132/71. HEENT: Normocephalic and atraumatic. NECK: No bruits noted. HEART: Irregular, rates about 110. II/ systolic ejection murmur. CONSULT REPORT [id number] KAVEH OHARA LUNGS: Diminished breath sounds. ABDOMEN: Soft and nontender. EXTREMITIES: Pulses 1+. There is 1+ edema, less than on admit. NEUROLOGIC: Grossly intact. DIAGNOSTIC DATA: ECG shows atrial fibrillation. IMPRESSION: Atrial fibrillation with exacerbation of diastolic dysfunction. I will add dig for rate control. Already on Coumadin. If she does not convert with pharmaceutical measures, certainly could consider cardioversion at some point. TRANSINT:[id number] Voice Confirmation ID: [id number] DOCUMENT ID: [id number] JACQUELINE SALEH MD at 1430 CC: [id number] DICTATION DATE: 05/08/19 1021 [place] BI DEVELOPER: 05/08/19 1236 ADM IN [facility] [address] [place] [address]
--- NOTE | 2019-05-09 14:30 | EC ---
PATIENT:KAVEH OHARA DATE OF SERVICE: 05/07/19 SEX: F MEDICAL RECORD: [id number] DATE OF : 43 LOCATION:D.M2 D.212 AGE OF PATIENT: 73 ADMISSION DATE: 05/07/19 REFERRING PHYSICIAN: INTERPRETING PHYSICIAN: JACQUELINE SALEH MD ECHOCARDIOGRAM REPORT ECHO CHARGES 4 ECHO COMPLETE Date: 05/08/19 CLINICAL DIAGNOSIS: AFIB ECHOCARDIOGRAPHIC MEASUREMENTS (adult normal given) AC root (d.<3.7cm) 2.5 cm LV Septum d (<1.2 cm> 1.2 cm Valve Excursion 1.7 cm LV Septum (systole) 1.4 cm Left Atria (s.<4.0cm> 3.8 cm LVPW d(<1.2cm) 0.7 cm RV (d.<2.3cm) 2.5 cm LVPW (sytole) 1.2 cm LV diastole(<5.6CM) 4.7 cm MV E-F(>70mm/sec) cm LV systole 3.8 cm LVOT Diameter 1.8 cm MV exc.(>10mm) cm Est.ejection fraction (50-75%) % DOPPLER: LVIT cm/sec A 44 cm/sec E 101 cm/sec LA cm/sec RVSP 29.6 mmHg LVOT 104 cm/sec AOP1/2T m/s Asc. Ao 172 cm/sec RVOT 91 cm/sec RA cm/sec PA 99 cm/sec AV Gradient Peak 11.8 mmHg AV Mean 5.2 mmHg AV Area 1.5 cm MV Gradient Peak 6.0 mmHg MV Mean 2.8 mmHg MV Area cm COMMENTS: Feather Shaper: Ray WONG Imp[employer]ator [employer]: 3 Dr. Barakat TAPE# PACS Pericardial Effusion N DATE OF SERVICE: Adequate 2D, color flow, spectral Doppler, and M-Mode. LVH is present. LV internal dimension is normal. Wall motion normal. EF is greater than or equal to 55%. Aortic valve sclerosis without evidence of stenosis by Doppler interrogation. Left atrium is normal. Mitral valve shows no prolapse. Trace MR. Right-sided chambers grossly normal. Mild TR. TRANSINT:[id number] Voice Confirmation ID: [id number] DOCUMENT ID: [id number] ECHOCARDIOGRAM REPORT [id number] LIANAKAVEH Souza JACQUELINE SALEH MD at 1430 CC: [id number] DICTATION DATE: 05/09/19 [address] OPERATOR: 05/09/19 1037 ADM IN [place] [id number] [place] [id number]
[2019-05-09 15:05] VITALS: Ht 170.2 cm; Wt 90.7 kg
[2019-05-09 20:00] VITALS: BP 149/76
[2019-05-10 04:00] VITALS: BP 121/63
[2019-05-10 06:35] LABS: INR 2.33 (0.85-1.17); PROTIME 24.9 SECONDS (11.6-15.0)
[2019-05-10 06:42] LABS: ANION GAP 16.1 mmol/L (8-16); CALCIUM 8.7 mg/dL (8.5-10.1); CARBON DIOXIDE 24.7 mmol/L (21.0-32.0); CREATININE - SERUM 1.2 mg/dL (0.6-1.3); POTASSIUM - SERUM 3.8 mmol/L (3.5-5.1)
[2019-05-10 07:28] LABS: BASOPHILS 0.3 % (0-2); HEMATOCRIT 37.3 % (36.0-48.0); HEMOGLOBIN 10.9 g/dL (12-16); IMMATURE GRANULOCYTES 0.1 % (0-5); LYMPHOCYTES 30.9 % (15-50); MCH 21.2 pg (26.0-34.0); MCHC 29.2 g/dL (31.0-37.0); MCV 72.4 fL (80.0-100.0); MEAN PLATELET VOLUME 9.7 fL (7.4-10.4); MONOCYTES 9.5 % (2-11); NEUTROPHILS 55.2 % (40-80); PLATELET COUNT 287 10x3/uL (130-400); RBC 5.15 10x6/uL (4.00-5.40); RDW 17.9 % (11.5-14.5); WBC 8.8 10x3/uL (4.8-10.8)
[2019-05-10 09:20] VITALS: BP 112/75
[2019-05-10 13:35] VITALS: BP 111/74; BP 111/774
[2019-05-10 14:33] VITALS: BP 82/42
[2019-05-10 17:42] VITALS: BP 140/70
[2019-05-10 20:00] VITALS: BP 132/85
[2019-05-11] VITALS: BP 145/94
[2019-05-11 04:00] VITALS: BP 124/58
[2019-05-11 05:33] LABS: BASOPHILS 0.2 % (0-2); EOSINOPHILS 4.2 % (0-7); HEMATOCRIT 33.1 % (36.0-48.0); HEMOGLOBIN 9.7 g/dL (12-16); IMMATURE GRANULOCYTES 0.1 % (0-5); LYMPHOCYTES 25.2 % (15-50); MCH 21.4 pg (26.0-34.0); MCHC 29.3 g/dL (31.0-37.0); MCV 72.9 fL (80.0-100.0); MEAN PLATELET VOLUME 9.3 fL (7.4-10.4); MONOCYTES 8.7 % (2-11); NEUTROPHILS 61.6 % (40-80); PLATELET COUNT 264 10x3/uL (130-400); RBC 4.54 10x6/uL (4.00-5.40); WBC 8.5 10x3/uL (4.8-10.8)
[2019-05-11 05:40] LABS: INR 2.55 (0.85-1.17); PROTIME 26.7 SECONDS (11.6-15.0)
[2019-05-11 05:43] LABS: ANION GAP 13.6 mmol/L (8-16); CALCIUM 8.5 mg/dL (8.5-10.1); CARBON DIOXIDE 25.4 mmol/L (21.0-32.0); CREATININE - SERUM 1.1 mg/dL (0.6-1.3)
[2019-05-11 09:31] VITALS: BP 122/77
[2019-05-11 11:24] VITALS: BP 113/58
[2019-05-11 16:14] VITALS: BP 132/73
[2019-05-11 19:54] VITALS: BP 141/59
[2019-05-12 03:57] VITALS: BP 115/71
[2019-05-12 06:09] LABS: BASOPHILS 0.2 % (0-2); EOSINOPHILS 3.5 % (0-7); HEMATOCRIT 31.7 % (36.0-48.0); HEMOGLOBIN 9.3 g/dL (12-16); IMMATURE GRANULOCYTES 0.4 % (0-5); LYMPHOCYTES 20.2 % (15-50); MCH 21.6 pg (26.0-34.0); MCHC 29.3 g/dL (31.0-37.0); MCV 73.5 fL (80.0-100.0); MEAN PLATELET VOLUME 9.2 fL (7.4-10.4); MONOCYTES 7.8 % (2-11); NEUTROPHILS 67.9 % (40-80); PLATELET COUNT 232 10x3/uL (130-400); RBC 4.31 10x6/uL (4.00-5.40); RDW 18.2 % (11.5-14.5); WBC 8.2 10x3/uL (4.8-10.8)
[2019-05-12 06:33] LABS: ANION GAP 11.7 mmol/L (8-16); CALCIUM 8.8 mg/dL (8.5-10.1); CARBON DIOXIDE 26.4 mmol/L (21.0-32.0); MAGNESIUM - SERUM 1.8 mg/dL (1.8-2.4); POTASSIUM - SERUM 4.1 mmol/L (3.5-5.1)
[2019-05-12 06:34] LABS: INR 2.49 (0.85-1.17); PROTIME 26.2 SECONDS (11.6-15.0)
[2019-05-12 08:25] VITALS: BP 131/70
[2019-05-12 11:33] VITALS: BP 128/74
[2019-05-12] MEDS ORDERED: TOPROL XL25 MG PO (12:52)
[2019-05-12] MEDS ORDERED: CARDIZEM 90 MG90 MG PO (12:53)
[2019-05-12 14:51] VITALS: BP 166/67
--- NOTE | 2019-05-12 17:33 | MORECARE ---
CASE MANAGEMENT DISCHARGE SUMMARY PATIENT: KAVEH OHARA UNIT: [id number] ADM DATE: 05/07/19 AGE: 73 : [birth year] SEX: F ROOM/BED: D.1214 AUTHOR: ALFONSO,DOC PHYSICIAN: REFERRING PHYSICIAN: BELLE UMANZOR MD DATE OF SERVICE: 05/12/19 Discharge Plan Patient Name: KAVEH OHARA Facility: [facility]:[place] : 1945 Planned Disposition: Home Anticipated Discharge Date: 05/12/19 Discharge Date: 05/12/2019 Expected LOS: 5 Initial Reviewer: [email or web address] Initial Review Date: 05/12/2019 Generated: 05/12/19 6:33 pm Comments DCP- Discharge Planning Updated by [email or web address]: Jony Jackson on 05/12/19 4:[address] Patient Name: KAVEH OHARA Admission Status: ER Accout number: [id number] Admission Date: 05-07-2019 : 1945 Admission Diagnosis:CHRONIC ATRIAL FIBRILLATION Attending: BELLE UMANZOR Current LOS: 5 Anticipated DC Date: 05-12-2019 Planned Disposition: Home Primary Insurance: MEDICARE A & B Discharge Planning Comments: CM MET WITH PT IN ROOM TO DISCUSS DISCHARGE PLANNING AND NEEDS. PT REPORTS LIVING AT HOME INDEPENDENTLY, PT'S GRANDSON LIVES WITH HER. PT HAS NO MEDICAL EQUIPMENT AND NO OUTSIDE SERVICES ASSISTING IN THE HOME. CM DISCUSSED AVAILABILITY OF HOME HEALTH, REHAB SERVICES AND MEDICAL EQUIPMENT. PT DENIES DISCHARGE NEEDS OTHER THAN NEEDING DISCHARGED FROM THE HOSPITAL, REPORTS HER COUSIN WILL PICK HER UP FOR DISCHARGE HOME. IMPORTANT MESSAGE FROM MEDICARE PROVIDED AND EXPLAINED. CM SPENT A LARGE AMOUNT OF TIME LISTENING TO PT'S COMPLAINTS THAT SHE HAS ALREADY REPORTED TO THE CHARGE NURSE. PT WANTED TO SEE A DOCTOR BEFORE LEAVING, BUT NOT DR. BELLE. CM CHECKED, DR ANDRADE GONE FOR THE DAY, DR. BELLE TAKING CALL FOR DR. ANDRADE; CM SPOKE TO DR. BELLE WHO IS NOT AVAILABLE. CM NOTIFIED LEONARD RUEDA WHO VISITED WITH PT PRIOR TO DISCHARGE. [facility] Match Up Worker: Jony Jackson DCPIA - Discharge Planning Initial Assessment Updated by [email or web address]: Jony Jackson on 05/12/19 5:27 pm * Is the patient Alert and Oriented? Yes * How many steps to enter\exit or inside your home? NONE * PCP DR. REYNOLDS * Pharmacy FOR [facility] ON [address] FOR EVERYTHING ELSE * Preadmission Environment Home with Family * ADLs Independent * Equipment None * Other Equipment NO MEDICAL EQUIPMENT PROVIDER PREFERENCE * List name and contact numbers for known caregivers / representatives who currently or will assist patient after discharge: APRYL GONZALEZ, * Verbal permission to speak to the caregivers and representatives has been obtained from the patient. N/A * Community resources currently utilized None * Please name any agencies selected above. NONE * Additional services required to return to the preadmission environment? No * Can the patient safely return to the preadmission environment? Yes * Has this patient been hospitalized within the prior 30 days at any hospital? No Coverage Notice Reviewer: [id number] - Jony Theodorewell Notice Issued Date-Time: 05/12/2019 14:00 Notice Type: IM Discharge Notice Notice Delivered To: Patient Relationship to Patient: Estate Administrator Name: Delivery Method: HAND - Hand Delivered Anny Days: Prior Verbal Notification: Recipient Understood Notice: Yes Recipient Signature: Yes Med Rec Note Co-signed by Attending: Coverage Notice Comment: Patient Name: KAVEH OHARA Page [phone] at 1733 All edits/amendments must be made on the electronic document DICTATION DATE: 05/12/191732 DAIRY EQUIPMENT SPECIALIST: JONI 05/12/191732 RPT#: [id number] DC DATE:05/12/19 STATUS: DIS IN [facility] [address] [place] [address] END OF REPORT
== END 2019-05-12 16:28 | disposition home or self-care (01) | DRG 291 ==
LOC: D.ER 13:29 → D.M2 19:11
PROVIDERS: Family Medicine; ADMIT Internal Medicine Nephrology; ATTEND Internal Medicine Nephrology
DX: I11.0 Hypertensive heart disease with heart failure (principal); J96.01 Acute respiratory failure with hypoxia; N17.9 Acute kidney failure, unspecified; I48.92 Unspecified atrial flutter; I48.2 Chronic atrial fibrillation; I50.33 Acute on chronic diastolic (congestive) heart failure; E78.5 Hyperlipidemia, unspecified; E11.9 Type 2 diabetes mellitus without complications; I48.91 Unspecified atrial fibrillation; D50.9 Iron deficiency anemia, unspecified

== ENCOUNTER 2019-07-01 18:37 | Emergency (ER) | payer MEDICARE, OTHER ==
[~2019-07-01] VITALS: Ht 170.2 cm; Wt 87.3 kg
[~2019-07-01 18:37] MED LIST changes: +CARDIZEM120 MG PO; +TOPROL XL25 MG PO; +VITAMIN D10000 UNI1 PO; +WELCHOL625 MG PO
[2019-07-01] MEDS ORDERED: SORINE80 MG PO (18:40)
[2019-07-01] MEDS ORDERED: SLOW RELEASE I160 MG PO (18:41)
[2019-07-01] MEDS ORDERED: WELCHOL625 MG PO (18:42)
[2019-07-01] MEDS ORDERED: PRAVACHOL40 MG PO (18:44)
[2019-07-01 18:45] VITALS: Ht 170.2 cm; Wt 87.3 kg
[2019-07-01 19:19] LABS: BASOPHILS 0.1 % (0-2); EOSINOPHILS 1.2 % (0-7); HEMATOCRIT 45.3 % (36.0-48.0); HEMOGLOBIN 14.1 g/dL (12-16); IMMATURE GRANULOCYTES 0.1 % (0-5); LYMPHOCYTES 27.2 % (15-50); MCH 25.5 pg (26.0-34.0); MCHC 31.1 g/dL (31.0-37.0); MCV 82.1 fL (80.0-100.0); MEAN PLATELET VOLUME 9.7 fL (7.4-10.4); MONOCYTES 7.3 % (2-11); NEUTROPHILS 64.1 % (40-80); PLATELET COUNT 202 10x3/uL (130-400); RBC 5.52 10x6/uL (4.00-5.40); RDW 24.5 % (11.5-14.5); WBC 7.7 10x3/uL (4.8-10.8)
[2019-07-01 19:28] LABS: APTT 36.7 SECONDS (22.8-39.4); INR 2.3 (0.85-1.17); PROTIME 24.6 SECONDS (11.6-15.0)
[2019-07-01 19:33] LABS: ALBUMIN 3.5 g/dL (3.4-5.0); ALKALINE PHOSPHATASE 81 U/L (46-116); ALT (SGPT) 43 U/L (10-68); BILIRUBIN - TOTAL 0.32 mg/dL (0.2-1.3); CALC OSMOLALITY 293 mosm/kg (275-300); CALCIUM 9.1 mg/dL (8.5-10.1); CARBON DIOXIDE 26.9 mmol/L (21.0-32.0); CHLORIDE - SERUM 107 mmol/L (98-107); GLUCOSE 113 mg/dL (74-106); POTASSIUM - SERUM 3.7 mmol/L (3.5-5.1); PROTEIN - SERUM 6.9 g/dL (6.4-8.2); SODIUM 146 mmol/L (136-145); UREA NITROGEN 19 mg/dL (7-18); eGFR NON AFRICAN AMERICAN 57 mL/min (90-120)
[2019-07-01 19:42] LABS: CKMB 0.7 U/L (0.0-3.6); TROPONIN-I < 0.017 ng/mL (0.000-0.060)
[2019-07-01 19:55] LABS: APPEARANCE CLEAR (CLEAR); BILIRUBIN NEGATIVE (NEGATIVE); COLOR YELLOW (YELLOW); GLUCOSE NEGATIVE (NEGATIVE); KETONE NEGATIVE (NEGATIVE); NITRITE NEGATIVE (NEGATIVE); PROTEIN NEGATIVE (NEGATIVE); UROBILINOGEN NORMAL (NORMAL)
[2019-07-01 19:56] LABS: AMORPHOUS SEDIMENT <1+ /lpf (NONE SEEN); BACTERIA FEW /hpf (NEGATIVE); EPITHELIAL CELLS 0-5 /hpf (0-5); RED CELLS - URINE 0-5 /hpf (0-5)
[2019-07-01 22:16] VITALS: BP 155/74
== END 2019-07-01 22:30 | disposition home or self-care (01) ==
LOC: D.ER 18:37 → EDBD 18:37 → D.ER 22:30
PROVIDERS: Family Medicine
DX: R51 Headache (principal); R20.0 Anesthesia of skin

== ENCOUNTER 2019-12-31 06:27 | Emergency (ER) | payer MEDICARE, OTHER ==
[~2019-12-31] VITALS: Ht 170.2 cm; Wt 81.6 kg
[~2019-12-31 06:27] MED LIST changes: +PRAVACHOL40 MG PO; +SLOW RELEASE I160 MG PO; +SORINE80 MG PO
[2019-12-31] MEDS ORDERED: XARELTO15 MG PO (06:34)
[2019-12-31 06:35] VITALS: Ht 170.2 cm; Wt 81.6 kg
[2019-12-31 06:48] LABS: BASOPHILS 0.1 % (0-2); EOSINOPHILS 4.3 % (0-7); HEMATOCRIT 48.6 % (36.0-48.0); HEMOGLOBIN 15.5 g/dL (12-16); IMMATURE GRANULOCYTES 0.2 % (0-5); LYMPHOCYTES 20.2 % (15-50); MCHC 31.9 g/dL (31.0-37.0); MEAN PLATELET VOLUME 9.8 fL (7.4-10.4); MONOCYTES 8.4 % (2-11); NEUTROPHILS 66.8 % (40-80); PLATELET COUNT 184 10x3/uL (130-400); RBC 5.17 10x6/uL (4.00-5.40); RDW 14.6 % (11.5-14.5); WBC 8.6 10x3/uL (4.8-10.8)
[2019-12-31 07:00] LABS: CALC OSMOLALITY 284 mosm/kg (275-300); CALCIUM 9.3 mg/dL (8.5-10.1); CARBON DIOXIDE 25.7 mmol/L (21.0-32.0); CHLORIDE - SERUM 105 mmol/L (98-107); CREATININE - SERUM 1.2 mg/dL (0.6-1.3); GLUCOSE 125 mg/dL (74-106); POTASSIUM - SERUM 3.8 mmol/L (3.5-5.1); SODIUM 142 mmol/L (136-145); UREA NITROGEN 16 mg/dL (7-18); eGFR NON AFRICAN AMERICAN 46 mL/min (90-120)
[2019-12-31 07:13] LABS: APTT 31.1 SECONDS (22.8-39.4); INR 1.22 (0.85-1.17); PROTIME 15.3 SECONDS (11.6-15.0)
[2019-12-31 07:14] LABS: D-DIMER-QUANTITATIVE 0.4 ug/mLFEU (0.20-0.54)
[2019-12-31 07:15] LABS: ALBUMIN 3.6 g/dL (3.4-5.0); ALKALINE PHOSPHATASE 82 U/L (30-120); ALT (SGPT) 29 U/L (10-68); BILIRUBIN - TOTAL 0.54 mg/dL (0.2-1.3); CREATINE KINASE 39 UL (21-215); LIPASE 344 U/L (73-393); MAGNESIUM - SERUM 1.7 mg/dL (1.8-2.4); PRO BNP 59 pg/mL (0-450); PROTEIN - SERUM 7.1 g/dL (6.4-8.2); THYROID STIMULATING HORMONE 1.99 uIU/mL (0.36-3.74); TROPONIN-I < 0.017 ng/mL (0.000-0.060)
[2019-12-31] MEDS ORDERED: BENICAR20 MG PO (07:32)
[2019-12-31 08:04] VITALS: BP 136/63
== END 2019-12-31 08:05 | disposition home or self-care (01) ==
LOC: D.ER 06:27
PROVIDERS: Family Medicine
DX: I10 Essential (primary) hypertension (principal); I48.91 Unspecified atrial fibrillation; Z79.899 Other long term (current) drug therapy; E78.5 Hyperlipidemia, unspecified; R51 Headache

== ENCOUNTER 2020-06-02 11:14 | Emergency (ER) | payer MEDICARE, OTHER ==
[~2020-06-02] VITALS: Ht 170.2 cm; Wt 81.8 kg
[~2020-06-02 11:14] MED LIST changes: +XARELTO15 MG PO
[2020-06-02 11:24] VITALS: Ht 170.2 cm; Wt 81.8 kg
[2020-06-02] MEDS ORDERED: COZAAR50 MG PO (11:33)
[2020-06-02 11:55] LABS: BASOPHILS 0.4 % (0-2); EOSINOPHILS 3.5 % (0-7); HEMATOCRIT 46.3 % (36.0-48.0); HEMOGLOBIN 15.2 g/dL (12-16); IMMATURE GRANULOCYTES 0.3 % (0-5); LYMPHOCYTES 28.6 % (15-50); MCH 30.4 pg (26.0-34.0); MCHC 32.8 g/dL (31.0-37.0); MCV 92.6 fL (80.0-100.0); MEAN PLATELET VOLUME 10.1 fL (7.4-10.4); MONOCYTES 7.9 % (2-11); NEUTROPHILS 59.3 % (40-80); PLATELET COUNT 183 10x3/uL (130-400); RDW 14.3 % (11.5-14.5); WBC 7.8 10x3/uL (4.8-10.8)
[2020-06-02 12:13] LABS: CALC OSMOLALITY 278 mosm/kg (275-300); CALCIUM 8.9 mg/dL (8.5-10.1); CARBON DIOXIDE 26.1 mmol/L (21.0-32.0); CHLORIDE - SERUM 104 mmol/L (98-107); GLUCOSE 115 mg/dL (74-106); POTASSIUM - SERUM 5.5 mmol/L (3.5-5.1); SODIUM 138 mmol/L (136-145); UREA NITROGEN 18 mg/dL (7-18); eGFR NON AFRICAN AMERICAN 57 mL/min (90-120)
[2020-06-02 12:20] LABS: BILIRUBIN NEGATIVE (NEGATIVE); KETONE NEGATIVE (NEGATIVE); NITRITE NEGATIVE (NEGATIVE); UROBILINOGEN NORMAL mg/dL (< 2)
[2020-06-02 12:22] LABS: WHITE CELLS - URINE 0-5 HPF (0-4)
[2020-06-02 12:23] LABS: BACTERIA FEW /HPF (NONE SEEN)
[2020-06-02 12:28] LABS: ALBUMIN 3.6 g/dL (3.4-5.0); ALKALINE PHOSPHATASE 76 U/L (30-120); ALT (SGPT) 34 U/L (10-68); APTT 31.6 SECONDS (22.8-39.4); BILIRUBIN - TOTAL 0.61 mg/dL (0.2-1.3); CKMB 0.8 U/L (0.0-3.6); CREATINE KINASE 122 UL (21-215); INR 1.32 (0.85-1.17); MAGNESIUM - SERUM 1.9 mg/dL (1.8-2.4); PROTEIN - SERUM 7.1 g/dL (6.4-8.2); PROTIME 16.3 SECONDS (11.6-15.0); THYROID STIMULATING HORMONE 1.48 uIU/mL (0.36-3.74); TROPONIN-I < 0.017 ng/mL (0.000-0.060)
[2020-06-02] MEDS ORDERED: ZOFRAN ODT4 MG/UDTAB PO (13:12)
[2020-06-02] MEDS ORDERED: KEFLEX500 MG PO (13:12)
[2020-06-02 15:11] VITALS: BP 135/56
== END 2020-06-02 15:12 | disposition home or self-care (01) ==
LOC: D.ER 11:14
PROVIDERS: Family Medicine
DX: R00.2 Palpitations (principal); R42 Dizziness and giddiness; E87.5 Hyperkalemia; N39.0 Urinary tract infection, site not specified; I12.9 Hypertensive chronic kidney disease with stage 1 through stage 4 chronic kidney disease, or unspecified chronic kidney disease; N18.9 Chronic kidney disease, unspecified; R73.9 Hyperglycemia, unspecified

== ENCOUNTER → 2021-03-06 10:25 | Outpatient (CLI) | payer MEDICARE, OTHER ==
[2020-09-14 07:39] VITALS: BMI 28.2
[~2021-03-06 10:25] MED LIST changes: +COZAAR50 MG PO; +KEFLEX500 MG PO; +ZOFRAN ODT4 MG/UDTAB PO
== END | disposition home or self-care (01) ==
LOC: D.US 10:25
PROVIDERS: ATTEND Internal Medicine Cardiovascular Disease
DX: I73.9 Peripheral vascular disease, unspecified (principal)